=== PATIENT | female | born 1970 | race Hispanic/Latino ===

== ENCOUNTER 2017-05-24 12:03 | Emergency (ER) | payer MEDICAID ==
--- NOTE | 2017-05-24 12:18 | Emergency Department Report ---
Chief Complaint: Psych Stated Complaint: NONE COMPLIANT W/ MEDS/BIPOLAR/SCHIZOPHRENIC Time Seen by Provider: 05/24/17 12:15 - HPI History of Present Illness: PT sent for MHE - ROS Review of Systems: unable to obtain. pt talking to herself and clapping - Exam Vital Signs: Vital Signs 05/24/17 12:10 Temperature 98.6 F Pulse Rate 95 H Respiratory 16 Rate Blood Pressure 146/111 O2 Sat by Pulse 100 Oximetry Physical Exam: PT is alert pt will respond to questions and then she will talk to herself, talk to the wall and then yell MSE screening note: Focused history and physical exam performed. Due to findings the following was ordered: labs, mhe ED Disposition for MSE Condition: Stable
[2017-05-24 13:14] LABS: Basophils % (Auto) 0.9 % (0.0-1.8); Eosinophils % (Auto) 1.6 % (0.0-4.3); Hematocrit 40.2 % (30.3-42.9); Hemoglobin 13.4 gm/dl (10.1-14.3); Mean Corpuscular HGB Conc 33 % (30-34); Mean Corpuscular Hemoglobin 29 pg (28-32); Mean Corpuscular Volume 87 fl (79-97); Platelet Count 232 K/mm3 (140-440); Red Blood Count 4.64 M/mm3 (3.65-5.03); Red Cell Distribution Width 15.7 % (13.2-15.2); White Blood Count 4.4 K/mm3 (4.5-11.0)
[2017-05-24 13:34] LABS: Alanine Aminotransferase 10 units/L (7-56); Albumin 4.2 g/dL (3.9-5); Albumin/Globulin Ratio 1.1 %; Alkaline Phosphatase 54 units/L (35-129); Anion Gap 19 mmol/L; BUN/Creatinine Ratio 18.88; Blood Urea Nitrogen 17 mg/dL (7-17); Carbon Dioxide 23 mmol/L (22-30); Chloride 102.8 mmol/L (98-107); Glucose 85 mg/dL (65-100); Potassium 4.5 mmol/L (3.6-5.0); Sodium 140 mmol/L (137-145); Total Protein 8.2 g/dL (6.3-8.2)
--- NOTE | 2017-05-24 21:56 | Emergency Department Report ---
HPI - General Chief Complaint: Psych Time Seen by Provider: 05/24/17 12:15 - HPI HPI: Patient is from half-way came to the ED with the complaint of anger fits, nonviolent, history of bipolar without medications in the last few days. Patient denies any suicidal ideation, homicidal ideation. ED Past Medical Hx - Past Medical History Previous Medical History?: Yes Hx Psychiatric Treatment: Yes - Surgical History Past Surgical History?: No - Social History Smoking Status: Current Some Day Smoker Substance Use Type: None - Medications Home Medications: Home Medications Medication Instructions Recorded Confirmed Last Taken Type Quetiapine Fumarate [Seroquel] 100 mg PO BID #60 tablet 05/24/17 Unknown Rx ED Review of Systems ROS: Stated complaint: NONE COMPLIANT W/ MEDS/BIPOLAR/SCHIZOPHRENIC Other details as noted in HPI Comment: All other systems reviewed and negative Gastrointestinal: as per HPI Psychiatric: anxiety Physical Exam - Physical Exam Vital Signs: Vital Signs 05/24/17 05/24/17 05/24/17 12:10 14:37 19:59 Temperature 98.6 F 98.7 F Pulse Rate 95 H 72 Respiratory 16 18 18 Rate Blood Pressure 146/111 Blood Pressure 116/73 [Right] O2 Sat by Pulse 100 100 Oximetry 05/24/17 20:09 Temperature Pulse Rate Respiratory 18 Rate Blood Pressure Blood Pressure [Right] O2 Sat by Pulse 100 Oximetry Physical Exam: Gen. alert and oriented 3 in no distress Head atraumatic normocephalic Eyes PERR LA EOMI Chest regular rate and rhythm normal S1-S2 lungs clear bilaterally Abdomen soft nondistended Back no point tenderness paravertebral tenderness Neuro no focal deficit. Psych normal mood. ED Course Vital Signs 05/24/17 05/24/17 05/24/17 12:10 14:37 19:59 Temperature 98.6 F 98.7 F Pulse Rate 95 H 72 Respiratory 16 18 18 Rate Blood Pressure 146/111 Blood Pressure 116/73 [Right] O2 Sat by Pulse 100 100 Oximetry 05/24/17 20:09 Temperature Pulse Rate Respiratory 18 Rate Blood Pressure Blood Pressure [Right] O2 Sat by Pulse 100 Oximetry - Reevaluation(s) Reevaluation #1: 05/24/17 21:56 Patient was seen by [facility] for recommended discharge home. ED Medical Decision Making - Lab Data Result diagrams: 05/24/17 12:51 05/24/17 12:51 Critical care attestation.: If time is entered above; I have spent that time in minutes in the direct care of this critically ill patient, excluding procedure time. ED Disposition Clinical Impression: Bipolar 1 disorder Disposition: TO HOME OR SELFCARE Is pt being admited?: No Does the pt Need Aspirin: No Condition: Stable Prescriptions: Quetiapine Fumarate [Seroquel] 100 mg PO BID #60 tablet Referrals: PRIMARY CARE, [Primary Care Provider] - 3-5 Days
[2017-05-25 07:52] VITALS: BP 124/80
== END 2017-05-25 16:45 | disposition home or self-care (01) ==
LOC: EEVIPCON 12:03 → ED 12:03
DX: F31.9 Bipolar disorder, unspecified (principal); F17.200 Nicotine dependence, unspecified, uncomplicated
CPT/HCPCS: 36415; 80053; 84703; 85025; 99284; G0480; 80320

== ENCOUNTER 2020-01-09 15:13 | Emergency (ER) | payer MEDICAID | END 2020-01-09 18:28 | disposition left against medical advice (07) | LOC: ED 15:13 | DX: Z76.0 Encounter for issue of repeat prescription (principal) ==

== ENCOUNTER 2020-01-09 20:46 | Emergency (ER) | payer MEDICAID | END 2020-01-09 21:05 | disposition left against medical advice (07) | LOC: ED 20:46 | DX: F31.9 Bipolar disorder, unspecified (principal); F20.9 Schizophrenia, unspecified; Z53.21 Procedure and treatment not carried out due to patient leaving prior to being seen by health care provider ==

== ENCOUNTER 2020-02-11 20:25 | Emergency (ER) | payer MEDICAID ==
--- NOTE | 2020-02-11 20:37 | Emergency Department Report ---
<LAY SMYTH - Last Filed: 02/11/20 23:41> ED General Adult HPI - General Chief complaint: Psych Stated complaint: MH PUI?: No Time Seen by Provider: 02/11/20 20:35 Source: patient, police, RN notes reviewed, old records reviewed Mode of arrival: Stretcher Limitations: Other (Patient is disorganized) - History of Present Illness Initial comments: Patient is a 49-year-old female. She is known to myself previously. She has a history of psychiatric disease, and medication noncompliance She is brought to the hospital by local police department for psychiatric breakthrough. Apparently, the patient flushed her medications down the toilet. As per verbal report from the accompanying police district switchboard operator, the patient has been combative, violence, and threatened to assault the officer. The patient is disorganized, and cannot describe the qualitative nature of her symptoms. She does not describe exacerbating or relieving factors. She does not complain of any physical ailments at this time. History is limited as the patient is disorganized, and she is not accompanied by a friend, family for additional information or collateral information. -: unknown Consistency: other Improves with: other Worsens with: other Treatments Prior to Arrival: other - Related Data Home Medications Medication Instructions Recorded Confirmed Last Taken risperiDONE [RisperDAL] 1 mg PO BID 01/19/20 02/12/20 Unknown Previous Rx's Medication Instructions Recorded Last Taken Type Paliperidone Palmitate (Nf) 156 mg IM ONCE #1 syringe 02/16/20 Unknown Rx [Invega Sustenna (Nf)] Paliperidone Palmitate(Nf) [Invega 234 mg IM ONCE #1 ml 02/16/20 Unknown Rx Sustenna(Nf)] Allergies Allergy/AdvReac Type Severity Reaction Status Date / Time diphenhydramine HCl AdvReac Rash Verified 05/24/17 12:08 [From Benadryl] ED Review of Systems Comment: Unobtainable due to pts medical conditions ED Past Medical Hx - Past Medical History Hx Psychiatric Treatment: Yes (bipolar, schizo) Additional medical history: HIV - Social History Smoking Status: Current Every Day Smoker Substance Use Type: None - Medications Home Medications: Home Medications Medication Instructions Recorded Confirmed Last Taken Type risperiDONE [RisperDAL] 1 mg PO BID 01/19/20 02/12/20 Unknown History Paliperidone Palmitate (Nf) 156 mg IM ONCE #1 syringe 02/16/20 Unknown Rx [Invega Sustenna (Nf)] Paliperidone Palmitate(Nf) [Invega 234 mg IM ONCE #1 ml 02/16/20 Unknown Rx Sustenna(Nf)] ED Physical Exam - General Limitations: Other (The patient is actively psychotic and disorganized) General appearance: in no apparent distress - Head Head exam: Present: atraumatic, normocephalic - Eye Eye exam: Present: normal appearance - ENT ENT exam: Present: normal exam, mucous membranes moist, normal external ear exam - Neck Neck exam: Present: normal inspection, full ROM. Absent: tenderness, meningismus - Respiratory Respiratory exam: Present: normal lung sounds bilaterally. Absent: respiratory distress - Cardiovascular Cardiovascular Exam: Present: regular rate, normal rhythm, normal heart sounds. Absent: bradycardia, tachycardia, irregular rhythm, systolic murmur, diastolic murmur, rubs, gallop - GI/Abdominal GI/Abdominal exam: Present: soft. Absent: distended, tenderness, guarding, rebound, rigid, pulsatile mass - Extremities Exam Extremities exam: Present: normal inspection, full ROM, other (2+ pulses noted in the bilateral upper and lower extremities. There is no palpable cord. negative Homans sign. Muscular compartments are soft. The pelvis is stable.). Absent: pedal edema, calf tenderness - Back Exam Back exam: Present: normal inspection, full ROM. Absent: tenderness, CVA tenderness (R), CVA tenderness (L), paraspinal tenderness, vertebral tenderness - Neurological Exam Neurological exam: Present: altered, normal gait, other (Patient is awake. Speaking nonsensically. Walking with a steady gait.) - Psychiatric Psychiatric exam: Present: agitated, anxious - Skin Skin exam: Present: warm, dry, intact, normal color. Absent: rash ED Course - Reevaluation(s) Reevaluation #1: 02/11/20 21:09 Differential diagnosis, including but not limited to: Psychosis, disorganized behavior, medical clearance for psychiatric placement, pneumonia, viral syndrome, urinary tract infection Assessment and plan: 49-year-old female who is obviously psychotic, disorganized, cannot take care of herself, requires 1013 status, also found to have low-grade temperature. History is limited secondary to patient's psychosis. Place patient in isolation, obtain screening laboratory studies, urinalysis, x- ray of the chest, and reassess. Motor exam is nonfocal, there are no meningeal signs at this time. Reevaluation #2: 02/11/20 21:37 Patient continues to be agitated, belligerent, combative, we are not able to complete her medical work-up at this time, she will therefore be medicated with Geodon, she was already medicated with haloperidol and Ativan. Reevaluation #3: 02/11/20 23:39 Laboratory studies unremarkable, and not consistent with impending cytokine storm. X-ray of the chest negative for acute pathology. Additional history obtained from nursing staff, I am informed that the patient's initial temperature was taken after vigorous physical activity, as the patient was struggling, and may have artificially elevated her core temperature. I am familiar with this patient, and her history at this time is not consistent with coronavirus. The patient is medically suitable for psychiatric placement, consultation, evaluation at this time. There is no indication for emergent testing for coronavirus in the emergency room. 02/11/20 23:41 ED Medical Decision Making - Lab Data Result diagrams: 02/11/20 20:44 02/11/20 20:44 Vital Signs 02/11/20 20:39 Temperature 100.4 F H Pulse Rate 91 H Respiratory 20 Rate Blood Pressure 142/94 [Left] O2 Sat by Pulse 96 Oximetry Lab Results 02/11/20 Range/Units 20:44 WBC 6.8 (4.5-11.0) K/mm3 RBC 5.11 H (3.65-5.03) M/mm3 Hgb 14.3 (10.1-14.3) gm/dl Hct 42.3 (30.3-42.9) % MCV 83 (79-97) fl MCH 28 (28-32) pg MCHC 34 (30-34) % RDW 13.0 L (13.2-15.2) % Plt Count 209 (140-440) K/mm3 ED Disposition Clinical Impression: Disorganized behavior, Acute psychosis Is pt being admited?: No Does the pt Need Aspirin: No Condition: Good Instructions: Schizophrenia (ED), Suicide Prevention for Adults (ED) Prescriptions: Paliperidone Palmitate (Nf) [Invega Sustenna (Nf)] 156 mg IM ONCE #1 syringe Paliperidone Palmitate(Nf) [Invega Sustenna(Nf)] 234 mg IM ONCE #1 ml Referrals: PRIMARY CARE, [Primary Care Provider] - 3-5 Days <VAHID CASTRO - Last Filed: 02/17/20 13:12> ED Review of Systems ROS: Stated complaint: MH Other details as noted in HPI ED Course Vital Signs 02/11/20 02/11/20 02/12/20 20:39 22:10 07:35 Temperature 100.4 F H 97.6 F 96.8 F L Pulse Rate 91 H 82 68 Respiratory 18 20 18 Rate Blood Pressure 142/94 118/77 147/85 [Left] O2 Sat by Pulse 96 98 100 Oximetry 02/12/20 02/13/20 02/13/20 20:05 01:22 08:00 Temperature 98.8 F 98.0 F 98.5 F Pulse Rate 71 65 86 Respiratory 18 16 17 Rate Blood Pressure 118/71 136/70 114/82 [Left] O2 Sat by Pulse 100 99 100 Oximetry 02/13/20 02/13/20 02/14/20 14:09 19:50 01:00 Temperature 98.2 F 98.1 F 98.0 F Pulse Rate 111 H 82 80 Respiratory 17 18 20 Rate Blood Pressure 127/78 140/82 138/78 [Left] O2 Sat by Pulse 96 99 99 Oximetry 02/14/20 02/14/20 02/14/20 08:05 14:00 19:30 Temperature 98.1 F 98.2 F Pulse Rate 111 H 83 Respiratory 18 18 18 Rate Blood Pressure 109/79 118/76 [Left] O2 Sat by Pulse 95 99 Oximetry 02/14/20 02/15/20 02/15/20 20:10 02:12 09:28 Temperature 98.6 F 97.6 F 97.6 F Pulse Rate 78 72 95 H Respiratory 18 16 18 Rate Blood Pressure 130/89 118/53 119/77 [Left] O2 Sat by Pulse 100 100 99 Oximetry 02/15/20 02/15/20 02/15/20 15:28 20:11 23:05 Temperature 97.5 F L 98.2 F Pulse Rate 85 78 Respiratory 20 18 18 Rate Blood Pressure 122/72 120/75 [Left] O2 Sat by Pulse 100 99 Oximetry 02/16/20 02/16/20 02/16/20 01:58 08:44 20:00 Temperature 98.0 F 96.6 F L 98.3 F Pulse Rate 68 69 73 Respiratory 16 18 18 Rate Blood Pressure 126/76 122/68 119/71 [Left] O2 Sat by Pulse 99 100 100 Oximetry 02/17/20 02/17/20 02/17/20 01:30 09:02 10:30 Temperature 97.8 F 97.8 F Pulse Rate 88 84 Respiratory 18 18 18 Rate Blood Pressure 105/68 115/80 [Left] O2 Sat by Pulse 99 100 100 Oximetry ED Medical Decision Making - Lab Data Result diagrams: 02/11/20 20:44 02/11/20 20:44 - Medical Decision Making Patient is 49 years old female admitted to the ER for acute psychosis. Patient has been evaluated by our psychiatric team and advised patient can be discharged home. I personally examined Ms. Golden, patient is calm and cooperative. She denied any suicidal or homicidal ideation. Patient also denied any visual or auditory hallucination. Patient is medically and psychiatrically stable for discharge. Critical care attestation.: If time is entered above; I have spent that time in minutes in the direct care of this critically ill patient, excluding procedure time.
[2020-02-11] MEDS: LORazepam 2 MG/ML VIAL IM PRN (20:46)
[2020-02-11 20:55] LABS: Hematocrit 42.3 % (30.3-42.9); Hemoglobin 14.3 gm/dl (10.1-14.3); Mean Corpuscular HGB Conc 34 % (30-34); Mean Corpuscular Volume 83 fl (79-97); Platelet Count 209 K/mm3 (140-440); Red Blood Count 5.11 M/mm3 (3.65-5.03)
[2020-02-11] MEDS ORDERED: IBUPROFEN 400 MG TAB PO ONE (21:04)
[2020-02-11 21:11] LABS: INR 0.9 (0.87-1.13)
[2020-02-11] MEDS: HALOPERIDOL LACTATE 5 MG/1 ML INJ IM PRN (21:13)
[2020-02-11 21:19] LABS: Alanine Aminotransferase 20 units/L (7-56); Albumin 4.3 g/dL (3.9-5); BUN/Creatinine Ratio 17; Blood Urea Nitrogen 12 mg/dL (7-17); Calcium 10.1 mg/dL (8.4-10.2); Hemolysis Index 26
[2020-02-11] MEDS ORDERED: ZIPRASIDONE MESYLATE 20 MG VIAL IM ONE (21:36)
[2020-02-11] MEDS ORDERED: WATER FOR INJ Sterile (PF) 10 ML ONE (21:40)
[2020-02-11] MEDS: risperiDONE 1 MG TAB PO SCH (21:52)
[2020-02-11 21:54] LABS: C-Reactive Protein 0.1 mg/dL (0.00-1.30)
--- NOTE | 2020-02-11 23:32 | XRay Report ---
CHEST 1 VIEW 2214 INDICATION / CLINICAL INFORMATION: low grade fever. COMPARISON: None available. FINDINGS: SUPPORT DEVICES: None HEART / MEDIASTINUM: No significant abnormality. LUNGS / PLEURA: Poor degree of inspiration is seen. Mild bibasilar linear atelectatic changes are not ed. No definite acute infiltrates are seen. No pneumothorax. ADDITIONAL FINDINGS: No significant additional findings. IMPRESSION: Mild basilar atelectasis Signer Name: Glen Dietz MD Signed: 02/11/2020 11:27 PM Workstation Name: [id number]
[2020-02-11 23:38] LABS: Amphetamine Screen,Urine PRESUMPTIVE NEGATIVE; Benzodiazepines Screen,Urine PRESUMPTIVE NEGATIVE; Cannabinoid Screen,Urine PRESUMPTIVE NEGATIVE; Cocaine Screen,Urine PRESUMPTIVE NEGATIVE; Methadone Screen,Urine PRESUMPTIVE NEGATIVE; Opiate Screen,Urine PRESUMPTIVE NEGATIVE
[2020-02-11 23:46] LABS: Bacteria,Urine 1+ /HPF (Negative); Bilirubin,Urine NEG (Negative); Blood,Urine NEG (Negative); Color,Urine Straw (Yellow); Protein,Urine <15 mg/dL mg/dL (Negative); Urobilinogen,Urine < 2.0 mg/dL (<2.0)
[2020-02-12] MEDS: risperiDONE 1 MG TAB PO SCH ×2 (09:54→23:36)
[2020-02-12] MEDS: HALOPERIDOL LACTATE 5 MG/1 ML INJ IM PRN (11:37)
[2020-02-12] MEDS: LORazepam 2 MG/ML VIAL IM PRN (17:54)
[2020-02-13] MEDS: risperiDONE 1 MG TAB PO SCH ×3 (09:57→22:07)
--- NOTE | 2020-02-13 12:54 | Consultation ---
History of Present Illness - Reason for Consult Consult date: 02/13/20 Reason for consult: combative - History of Present Psychiatric Illness Syeda Golden is a 49y/o female patient who was was brought to the ER for combativeness and aggression toward others. During my interview with the patient she is standing at the door in her room. She is disorganized. She is a poor historian. She makes good eye contact. Her speech is garbled. She's very difficulty to follow. She says she's feeling "great." The patient starts out by telling me "there were three men in a room." She then states, "I don't know what happen. We were having fun." She then laughs out loud. She denies SI/HI. She also denies hallucinations of any kind, saying "I never have in my life." The patient denies any illicit drug use or alcohol use. When asking about her psychiatric history, she replied, "that's a good one." She also could not answer about any past medications, stating, "let me see." PAST PSYCHIATRIC HISTORY: The patient was unable to give information on past psych history PAST MEDICAL HISTORY: None reported Family History: None reported or documented SOCIAL HISTORY Living arrangement: Alone Marital status: Single Highest education level: "I don't know" Legal history: Did not answer REVIEW OF SYSTEMS Constitutional: Negative for weight loss ENT: Negative for stridor Respiratory: Negative for cough or hemoptysis All other systems reviewed and are negative MENTAL STATUS EXAMINATION General Appearance: Dressed appropriately Behavior: Cooperative. Good eye contact Mood: "Great" Affect: Congruent with stated mood Speech: Garbled, tangential, disorganized Thought Process: Goal oriented Thought Content: Suicidal Ideation: Denies Homicidal Ideation: Denies Hallucinations: Denies Delusions: None elicited Insight and Judgment: Poor Memory/Cognition: Poor Treatment plan Risperidone 2mg p BID Trazodone 50mg po qhs Melatonin 5mg po qhs prn insomnia Agree with prn Haldol and Lorazepam Sitter: Defer to primary Medical: Per primary Disposition: The patient meets the criteria for acute inpatient psychiatric treatment. She may transfer to an acute psych facility once medically clear. Will continue to follow the patient until she is transferred or improves enough for discharge. Please call with any questions or concerns. Thank you for this consult. Medications and Allergies Allergies Allergy/AdvReac Type Severity Reaction Status Date / Time diphenhydramine HCl AdvReac Rash Verified 05/24/17 12:08 [From [facility]] Home Medications Medication Instructions Recorded Confirmed Last Taken Type risperiDONE [RisperDAL] 1 mg PO BID 01/19/20 02/12/20 Unknown History Active Meds: Active Medications Haloperidol Lactate (Haldol) 5 mg IM Q6HR PRN PRN Reason: Agitation Last Admin: 02/12/20 11:37 Dose: 5 mg Documented by: Lorazepam (Ativan) 2 mg IM Q4HR PRN PRN Reason: Agitation Last Admin: 02/12/20 17:54 Dose: 2 mg Documented by: Risperidone (Risperdal) 1 mg PO BID ANNIE Last Admin: 02/13/20 09:57 Dose: 1 mg Documented by: Mental Status Exam - Vital signs Last Vital Signs Temp 98.5 F 02/13/20 08:00 Pulse 86 02/13/20 08:00 Resp 17 02/13/20 08:00 BP 114/82 02/13/20 08:00 Pulse Ox 100 02/13/20 08:00 Results Result Diagrams: 02/11/20 20:44 02/11/20 20:44 All other labs normal.
[2020-02-13] MEDS ORDERED: MELATONIN 5 MG TAB PO PRN (22:00)
[2020-02-13] MEDS: traZODone 50 MG TAB PO SCH (22:08)
[2020-02-14] MEDS: risperiDONE 1 MG TAB PO SCH ×2 (10:59→23:19)
--- NOTE | 2020-02-14 11:48 | Progress Note ---
Subjective - Reason for Consult Consult date: 02/14/20 Reason for consult: combative, threatening - Chief Complaint Chief complaint: Reviewed the patient's medical charts and discussed the patient's progress with the nursing staff. The nurse caring for the patient states that she becomes easily aggressive and is very disorganized. During my interview with the patient, she is lying in bed. Awake. Her speech is garbled. The patient is disorganized, and cannot explain why she's here or the nature of her problems. She is difficulty to follow. The patient states, "I have no idea why they brought me here." She says, "I feel okay" when asked. She denies SI/HI, and states, "no, I never was." She then starts babbling, and making sounds with her mouth, then replies, "I respect you." The patient then laughs out loud. When asking the patient about any hallucinations, she stated, "see, there was a lady there." REVIEW OF SYSTEMS Constitutional: Negative for weight loss ENT: Negative for stridor Respiratory: Negative for cough or hemoptysis All other systems reviewed and are negative MENTAL STATUS EXAMINATION General Appearance: Dressed appropriately Behavior: Cooperative. Good eye contact Mood: "fine" Affect: Congruent with stated mood Speech: Garbled, tangential, disorganized Thought Process: Goal oriented Thought Content: Suicidal Ideation: Denies Homicidal Ideation: Denies Hallucinations: Denies Delusions: None elicited Insight and Judgment: Poor Memory/Cognition: Poor Treatment plan Increase Risperidone 3mg p BID Start Cogentin 0.5mg po BID Sitter: Defer to primary Medical: Per primary Disposition: The patient meets the criteria for acute inpatient psychiatric treatment. She may transfer to an acute psych facility once medically clear. Will continue to follow the patient until she is transferred or improves enough for discharge. Please call with any questions or concerns. Thank you for this consult. Mental Status Exam - Vital signs Last Vital Signs Temp 98.1 F 02/14/20 08:05 Pulse 111 H 02/14/20 08:05 Resp 18 02/14/20 08:05 BP 109/79 02/14/20 08:05 Pulse Ox 95 02/14/20 08:05
[2020-02-14] MEDS: risperiDONE 3 MG TAB PO SCH (23:14)
[2020-02-14] MEDS: traZODone 50 MG TAB PO SCH (23:14)
[2020-02-14] MEDS: BENZTROPINE 0.5 MG TAB PO SCH (23:14)
--- NOTE | 2020-02-15 06:56 | Event Note ---
Date: 02/15/20 Vital signs are reviewed and appreciated, the patient is reevaluated by myself. The patient still remains medically suitable and appropriate for psychiatric placements, consultation and evaluation at this time. There is no immediate medical contraindication to psychiatric placement at this time. The patient will be best served at a psychiatric facility that can manage her acute decompensated psychosis. Vital Signs 02/11/20 02/11/20 02/12/20 20:39 22:10 07:35 Temperature 100.4 F H 97.6 F 96.8 F L Pulse Rate 91 H 82 68 Respiratory 18 20 18 Rate Blood Pressure 142/94 118/77 147/85 [Left] O2 Sat by Pulse 96 98 100 Oximetry 02/12/20 02/13/20 02/13/20 20:05 01:22 08:00 Temperature 98.8 F 98.0 F 98.5 F Pulse Rate 71 65 86 Respiratory 18 16 17 Rate Blood Pressure 118/71 136/70 114/82 [Left] O2 Sat by Pulse 100 99 100 Oximetry 02/13/20 02/13/20 02/14/20 14:09 19:50 01:00 Temperature 98.2 F 98.1 F 98.0 F Pulse Rate 111 H 82 80 Respiratory 17 18 20 Rate Blood Pressure 127/78 140/82 138/78 [Left] O2 Sat by Pulse 96 99 99 Oximetry 02/14/20 02/14/20 02/14/20 08:05 14:00 19:30 Temperature 98.1 F 98.2 F Pulse Rate 111 H 83 Respiratory 18 18 18 Rate Blood Pressure 109/79 118/76 [Left] O2 Sat by Pulse 95 99 Oximetry 02/14/20 02/15/20 20:10 02:12 Temperature 98.6 F 97.6 F Pulse Rate 78 72 Respiratory 18 16 Rate Blood Pressure 130/89 118/53 [Left] O2 Sat by Pulse 100 100 Oximetry
--- NOTE | 2020-02-15 11:48 | Progress Note ---
Subjective - Reason for Consult Consult date: 02/15/20 Reason for consult: Threatening, combative - Chief Complaint Chief complaint: Reviewed the patient's medical charts and discussed the patient's progress with the nursing staff. The nurse caring for the patient is improving, but says the patient is still very disorganized and gets lost in her conversations. The nurse states the patient responds better to the Haldol. The nurse states after the patient is given haldol she is a lot better. During my interview with the patient, she is walking around in her room. She is dressed appropriately. She makes good eye contact. Her speech is garbled and di sorganized. She's able to respond with minimum word answers, but is unable to communicate or explain what is going on with her in sentence form. The patient appears to get frustrated when she can't get her words out and starts making incomprehensible sounds. She says, "I'm great. I'm happy" when asked. When asked about the reason she was admitted, she says "there was Carlos and an [employer]." She continues to rant but she is incomprehensible. She then starts to make sounds when she couldn't get her words out. She says "no, I'm not" when asked about being suicidal. She denies hallucinations of any kind. REVIEW OF SYSTEMS Constitutional: Negative for weight loss ENT: Negative for stridor Respiratory: Negative for cough or hemoptysis All other systems reviewed and are negative MENTAL STATUS EXAMINATION General Appearance: Dressed appropriately Behavior: Cooperative. Good eye contact Mood: "I'm great. I'm happy." Affect: Congruent with stated mood Speech: Garbled, disorganized Thought Process: Disorganized Thought Content: Suicidal Ideation: Denies Homicidal Ideation: Denies Hallucinations: Denies Delusions: None elicited Insight and Judgment: Poor Memory/Cognition: Poor Treatment plan Discontinue Risperidone 3mg p BID Start Haldol 2mg po BID Sitter: Defer to primary Medical: Per primary Disposition: The patient meets the criteria for acute inpatient psychiatric treatment. She may transfer to an acute psych facility once medically clear. Will continue to follow the patient until she is transferred or improves enough for discharge. Please call with any questions or concerns. Thank you for this consult. Mental Status Exam - Vital signs Last Vital Signs Temp 97.6 F 02/15/20 09:28 Pulse 95 H 02/15/20 09:28 Resp 18 02/15/20 09:28 BP 119/77 02/15/20 09:28 Pulse Ox 99 02/15/20 09:28
[2020-02-15] MEDS: BENZTROPINE 0.5 MG TAB PO SCH ×2 (12:00→21:51)
[2020-02-15] MEDS: risperiDONE 1 MG TAB PO SCH (12:00)
[2020-02-15] MEDS ORDERED: risperiDONE 1 MG TAB ONE (14:07)
[2020-02-15] MEDS: risperiDONE 3 MG TAB PO SCH (14:12)
[2020-02-15] MEDS: HALOPERIDOL 2 MG TAB PO SCH (21:51)
[2020-02-15] MEDS: traZODone 50 MG TAB PO SCH (21:51)
[2020-02-16] MEDS: BENZTROPINE 0.5 MG TAB PO SCH ×2 (10:54→21:55)
[2020-02-16] MEDS: HALOPERIDOL 2 MG TAB PO SCH (10:54)
--- NOTE | 2020-02-16 11:10 | Progress Note ---
Subjective - Reason for Consult Consult date: 02/16/20 Reason for consult: comabitive, threatnening - Chief Complaint Chief complaint: Reviewed the patient's medical charts and discussed the patient's progress with the nursing staff. During my interview with the patient, she is walking around in her room. She is dressed appropriately. She makes good eye contact. Her speech is garbled and disorganized. She is incomprehensible when trying to explain herself. She describes feeling "great. I'm happy." She denies SI/HI or hallucinations of any kind, stating, "no, I never was." I spoke with the patient's case manage, Torsten Baptiste. She states the patient does stutter but is never disorganzied. Mrs. Baptiste says the patient is noncomplaint with her medications and becomes like this when she is off her medication. REVIEW OF SYSTEMS Constitutional: Negative for weight loss ENT: Negative for stridor Respiratory: Negative for cough or hemoptysis All other systems reviewed and are negative MENTAL STATUS EXAMINATION General Appearance: Dressed appropriately Behavior: Cooperative. Good eye contact Mood: "I'm great. I'm happy." Affect: Congruent with stated mood Speech: Garbled, disorganized Thought Process: Disorganized Thought Content: Suicidal Ideation: Denies Homicidal Ideation: Denies Hallucinations: Denies Delusions: None elicited Insight and Judgment: Poor Memory/Cognition: Poor Assessment: Schizoaffective Disorder Treatment plan Scripts sent electronically to [facility] ([address] [place] [address] Rd - [phone]) Mrs. Sarmiento to sisal picker.. Invega Sustenna 234mg IM Invega Sustenna 156mg IM oliva day 8 Haldol Decanate 50mg IM x once Sitter: Defer to primary Medical: Per primary Disposition: Monitor overnight after given Haldol Decanate. Will d/c tomorrow if the patient is stable and her night is uneventful. Please call with any questions or concerns. Thank you for this consult. Mental Status Exam - Vital signs Last Vital Signs Temp 96.6 F L 02/16/20 08:44 Pulse 69 02/16/20 08:44 Resp 18 02/16/20 08:44 BP 122/68 02/16/20 08:44 Pulse Ox 100 02/16/20 08:44
[2020-02-16] MEDS ORDERED: HALOPERIDOL 5 MG TAB PO SCH (12:00)
[2020-02-16] MEDS ORDERED: HALOPERIDOL DECANOATE 100 MG/1 ML INJ IM ONE (13:30)
[2020-02-16] MEDS: traZODone 50 MG TAB PO SCH (21:55)
[2020-02-17] MEDS: BENZTROPINE 0.5 MG TAB PO SCH (10:07)
--- NOTE | 2020-02-17 12:21 | Progress Note ---
Subjective - Reason for Consult Consult date: 02/17/20 Reason for consult: MHE Requesting physician: LAY SMYTH - Chief Complaint Chief complaint: Reviewed the patient's medical charts Per Nurse note, No complaints during HS medications. No distress noted. Calm and cooperative. Provider HPI: Patient up and awake in room, makes good eye contact, reports feeling better today, has been medication complaint. Denies state of anger or aggression. Reports liking her roommates and wishes to not get in fight neither does she want to fight them. No SI or HI reported MENTAL STATUS EXAMINATION General Appearance: Dressed appropriately Behavior: Cooperative. Good eye contact Mood: Happy and good Affect: Congruent with stated mood Speech: Stammering but audible Thought Process: Disorganized Thought Content: Suicidal Ideation: Denies Homicidal Ideation: Denies Hallucinations: Denies Delusions: None elicited Insight and Judgment: Fair Memory/Cognition: Poor Assessment: Schizoaffective Disorder Treatment plan Discharge today Scripts sent electronically to [facility] ([address] [place] [address] Rd - [phone]) Mrs. Sarmiento to solution make up operator.. Invega Sustenna 234mg IM Invega Sustenna 156mg IM oliva day 8 Haldol Decanate 50mg IM x once Sitter: Defer to primary Medical: Per primary Disposition: Outpatient Please call with any questions or concerns. Thank you for this consult. Mental Status Exam - Vital signs Last Vital Signs Temp 97.8 F 02/17/20 09:02 Pulse 84 02/17/20 09:02 Resp 18 02/17/20 10:30 BP 115/80 02/17/20 09:02 Pulse Ox 100 02/17/20 10:30
[2020-02-17 14:59] VITALS: BP 119/76
== END 2020-02-17 13:52 | disposition home or self-care (01) ==
LOC: EEVIPCON 20:25 → ED 20:25
DX: R46.89 Other symptoms and signs involving appearance and behavior (principal); F31.9 Bipolar disorder, unspecified; F20.9 Schizophrenia, unspecified; F17.200 Nicotine dependence, unspecified, uncomplicated
CPT/HCPCS: 36415; 71045; 80053; 80307; 81001; 82550; 82728; 83615; 83735; 85027; 85379; 85610; 86140; 96372; 99285; J1630; J1631; J2060; J3486; 80320; G0480

== ENCOUNTER 2020-02-25 17:59 | Emergency (ER) | payer MEDICAID ==
[2020-02-25] MEDS ORDERED: DEXTROSE 50% IN WATER (25GM) 50 ML SYRINGE IV PRN (18:13)
--- NOTE | 2020-02-25 18:16 | Event Note ---
Date: 02/25/20 Medical screening note: 49-year-old female, well-known to myself, brought to the hospital by emergency medical services after she was found down on the street, for uncertain duration of time, and uncertain mechanism, it appears that michael contacted emergency medical services. The patient is speaking with her typical disorganized speech, however, she is not homicidal or suicidal at this time. EMS verbally states the patient was hypoglycemic. They report that they gave her dextrose. Check screening laboratory studies, urinalysis, x-ray of the chest, rectal temperature, EKG, every 1 hour Accu-Cheks, CT scan brain and cervical spine.
--- NOTE | 2020-02-25 19:36 | XRay Report ---
AP PELVIS INDICATION / CLINICAL INFORMATION: MAIN: found down; EMS reports pt was found lying on the side of the road. BG 49, administered D10, BG 257 per EMS. COMPARISON: None available. FINDINGS: No fracture or dislocation is seen within the pelvis or either hip. Signer Name: Reilly Lucas MD Signed: 02/25/2020 7:32 PM Workstation Name: [id number]
--- NOTE | 2020-02-25 19:37 | XRay Report ---
CHEST 1 VIEW 02/25/2020 6:27 PM INDICATION / CLINICAL INFORMATION: MAIN: hypoglycemia found on road ams; EMS reports pt was found lying on the side of the road. BG 49, administered D10, BG 257 per EMS. COMPARISON: Chest x-ray 02/11/2020 FINDINGS: SUPPORT DEVICES: None. HEART / MEDIASTINUM: No significant abnormality. LUNGS / PLEURA: No significant pulmonary or pleural abnormality. No pneumothorax. ADDITIONAL FINDINGS: No significant additional findings. IMPRESSION: 1. No acute findings. Signer Name: Reilly Lucas MD Signed: 02/25/2020 7:33 PM Workstation Name: [id number]
[2020-02-25 19:43] LABS: INR 1.04 (0.87-1.13)
[2020-02-25 19:45] LABS: Alanine Aminotransferase 13 units/L (7-56); Albumin 3.8 g/dL (3.9-5); BUN/Creatinine Ratio 15; Blood Urea Nitrogen 12 mg/dL (7-17); Calcium 9.3 mg/dL (8.4-10.2); Hemolysis Index 11
[2020-02-25] MEDS ORDERED: POTASSIUM CHLORIDE ER 20 MEQ TAB PO ONE (19:59)
--- NOTE | 2020-02-25 20:00 | Cat Scan Report ---
CT head/brain wo con INDICATION / CLINICAL INFORMATION: 49 years Female; ams found on road. TECHNIQUE: Routine CT head without contrast. All CT scans at this location are performed using CT dos e reduction for ALARA by means of automated exposure control. COMPARISON: None. FINDINGS: BRAIN / INTRACRANIAL CONTENTS: No acute hemorrhage, mass effect, midline shift, hydrocephalus, or acu te, large territorial infarct. No chronic infarct or atrophy appreciated. No significant white matter abnormality. CRANIOCERVICAL JUNCTION: No significant abnormality. ORBITS: No significant abnormality of visualized orbits. SINUSES / MASTOIDS: No significant abnormality the visualized paranasal sinuses or mastoid air cells. ADDITIONAL FINDINGS: None. IMPRESSION: 1. No focal mass, hemorrhage, hydrocephalus, or acute, large territorial infarct. Signer Name: Max Wahl MD, III Signed: 02/25/2020 7:56 PM Workstation Name: [id number]
[2020-02-25 20:07] LABS: Hematocrit 34.8 % (30.3-42.9); Hemoglobin 11.8 gm/dl (10.1-14.3)
[2020-02-25 20:13] LABS: Bilirubin,Urine NEG (Negative); Blood,Urine NEG (Negative); Color,Urine Straw (Yellow); Protein,Urine <15 mg/dL mg/dL (Negative); Urobilinogen,Urine < 2.0 mg/dL (<2.0); WBC,Urine < 1.0 /HPF (0.0-6.0)
--- NOTE | 2020-02-25 20:16 | Emergency Department Report ---
ED General Adult HPI - General Chief complaint: Hyperglycemia Stated complaint: HYPOGLYCEMIA PUI?: No Time Seen by Provider: 02/25/20 19:10 Source: patient, EMS ( EMS documentation not available at time of chart dictation . Verbal report received from emergency medical services.), RN notes reviewed, old records reviewed Mode of arrival: Stretcher Limitations: Other (Patient is chronically disorganized) - History of Present Illness Initial comments: The patient is a 49-year-old female whom I have evaluated multiple times in the past. She is brought to the hospital by emergency medical services. Apparently, she was found sitting or laying on the road, and a good [employer] called emergency medical services. The patient was found to be mildly hypoglycemic. She was given dextrose and fed, and this corrected her hypogly cemia. She is not homicidal or suicidal at this time. She indicates that she is not having physical pain. The patient is somewhat of a poor historian, but at this point in time, she appears improved compared to my prior evaluation today, and from previous evaluations. She does not describe the qualitative nature of her symptoms, exacerbating or relieving factors. -: This afternoon Severity scale (0 -10): 3 - Related Data Home Medications Medication Instructions Recorded Confirmed Last Taken risperiDONE [RisperDAL] 1 mg PO BID 01/19/20 02/12/20 Unknown Previous Rx's Medication Instructions Recorded Last Taken Type Paliperidone Palmitate (Nf) 156 mg IM ONCE #1 syringe 02/16/20 Unknown Rx [Invega Sustenna (Nf)] Paliperidone Palmitate(Nf) [Invega 234 mg IM ONCE #1 ml 02/16/20 Unknown Rx Sustenna(Nf)] Allergies Allergy/AdvReac Type Severity Reaction Status Date / Time diphenhydramine HCl AdvReac Rash Verified 05/24/17 12:08 [From Benadryl] ED Review of Systems ROS: Stated complaint: HYPOGLYCEMIA Other details as noted in HPI Constitutional: see HPI Eyes: as per HPI ENT: as per HPI Respiratory: see HPI Cardiovascular: as per HPI Endocrine: see HPI Gastrointestinal: as per HPI Genitourinary: as per HPI Musculoskeletal: as per HPI Skin: as per HPI Neurological: as per HPI Psychiatric: as per HPI Hematological/Lymphatic: as per HPI ED Past Medical Hx - Past Medical History Previous Medical History?: Yes Hx Psychiatric Treatment: Yes (bipolar, schizo) Additional medical history: HIV - Social History Smoking Status: Unknown if ever smoked - Medications Home Medications: Home Medications Medication Instructions Recorded Confirmed Last Taken Type risperiDONE [RisperDAL] 1 mg PO BID 01/19/20 02/12/20 Unknown History Paliperidone Palmitate (Nf) 156 mg IM ONCE #1 syringe 02/16/20 Unknown Rx [Invega Sustenna (Nf)] Paliperidone Palmitate(Nf) [Invega 234 mg IM ONCE #1 ml 02/16/20 Unknown Rx Sustenna(Nf)] ED Physical Exam - General Limitations: Other (The patient is a poor historian) General appearance: alert, anxious - Head Head exam: Present: atraumatic, normocephalic - Eye Eye exam: Present: normal appearance, EOMI. Absent: nystagmus - ENT ENT exam: Present: mucous membranes dry, normal external ear exam - Neck Neck exam: Present: normal inspection, full ROM. Absent: tenderness, meningismus - Respiratory Respiratory exam: Present: normal lung sounds bilaterally. Absent: respiratory distress - Cardiovascular Cardiovascular Exam: Present: regular rate, normal rhythm, normal heart sounds. Absent: bradycardia, tachycardia, irregular rhythm, systolic murmur, diastolic murmur, rubs, gallop - GI/Abdominal GI/Abdominal exam: Present: soft, normal bowel sounds. Absent: distended, tenderness, guarding, rebound, rigid, pulsatile mass - Extremities Exam Extremities exam: Present: normal inspection, full ROM, other (2+ pulses noted in the bilateral upper and lower extremities. There is no palpable cord. negative Homans sign. Muscular compartments are soft. The pelvis is stable.). Absent: pedal edema, calf tenderness - Back Exam Back exam: Present: normal inspection, full ROM. Absent: tenderness, CVA tenderness (R), CVA tenderness (L), paraspinal tenderness, vertebral tenderness - Neurological Exam Neurological exam: Present: alert, oriented X3, normal gait, other (No facial droop. Tongue midline. Extraocular movements intact bilaterally. Facial sensation intact to light touch in V1, V2, V3 distribution bilaterally. 5 and a 5 strength in 4 extremities. Sensation intact to light touch in 4 e xtremities.). Absent: motor sensory deficit - Psychiatric Psychiatric exam: Present: anxious - Skin Skin exam: Present: warm, dry, intact, normal color. Absent: rash ED Course Vital Signs 02/25/20 19:15 Temperature 98.2 F Pulse Rate 96 H Respiratory 18 Rate Blood Pressure 99/59 Blood Pressure 99/59 [Left] O2 Sat by Pulse 95 Oximetry - Reevaluation(s) Reevaluation #1: 02/25/20 21:57 There is no midline cervical spine tenderness or step-offs. The patient is walking with a steady gait at this time. She has a GCS of 15. She has no weakness or numbness. At this point time, rectal temperature not indicated, and she does not require C-spine imaging at this time ED Medical Decision Making - Lab Data Result diagrams: 02/25/20 20:01 02/25/20 19:17 Vital Signs 02/25/20 19:15 Temperature 98.2 F Pulse Rate 96 H Respiratory 18 Rate Blood Pressure 99/59 Blood Pressure 99/59 [Left] O2 Sat by Pulse 95 Oximetry Lab Results 02/25/20 02/25/20 02/25/20 Range/Units 19:15 19:17 19:17 Hgb (10.1-14.3) gm/dl Hct (30.3-42.9) % Plt Count (140-440) K/mm3 PT 13.4 (12.2-14.9) Sec. INR 1.04 (0.87-1.13) Sodium 139 (137-145) mmol/L Potassium 3.1 L (3.6-5.0) mmol/L Chloride 102.4 (98-107) mmol/L Carbon Dioxide 25 (22-30) mmol/L Anion Gap 15 mmol/L BUN 12 (7-17) mg/dL Creatinine 0.8 (0.7-1.2) mg/dL Estimated GFR > 60 ml/min BUN/Creatinine Ratio 15 % Glucose 103 H (65-100) mg/dL POC Glucose 95 (70-105) Calcium 9.3 (8.4-10.2) mg/dL Magnesium 2.30 (1.7-2.3) mg/dL Total Bilirubin 0.70 (0.1-1.2) mg/dL AST 23 (5-40) units/L ALT 13 (7-56) units/L Alkaline Phosphatase 51 (35-129) units/L Total Creatine Kinase 453 H (30-135) units/L Total Protein 6.9 (6.3-8.2) g/dL Albumin 3.8 L (3.9-5) g/dL Albumin/Globulin Ratio 1.2 % Urine Color (Yellow) Urine Turbidity (Clear) Urine pH (5.0-7.0) Ur Specific [place] (1.003-1.030) Urine Protein (Negative) mg/dL Urine Glucose (UA) (Negative) mg/dL Urine Ketones (Negative) mg/dL Urine Blood (Negative) Urine Nitrite (Negative) Urine Bilirubin (Negative) Urine Urobilinogen (<2.0) mg/dL Ur Leukocyte Esterase (Negative) Urine WBC (Auto) (0.0-6.0) /HPF Urine RBC (Auto) (0.0-6.0) /HPF U Epithel Cells (Auto) (0-13.0) /HPF Salicylates (2.8-20.0) mg/dL Acetaminophen (10.0-30.0) ug/mL Plasma/Serum Alcohol (0-0.07) % 02/25/20 02/25/20 02/25/20 Range/Units 19:17 19:17 19:17 Hgb (10.1-14.3) gm/dl Hct (30.3-42.9) % Plt Count (140-440) K/mm3 PT (12.2-14.9) Sec. INR (0.87-1.13) Sodium (137-145) mmol/L Potassium (3.6-5.0) mmol/L Chloride (98-107) mmol/L Carbon Dioxide (22-30) mmol/L Anion Gap mmol/L BUN (7-17) mg/dL Creatinine (0.7-1.2) mg/dL Estimated GFR ml/min BUN/Creatinine Ratio % Glucose (65-100) mg/dL POC Glucose (70-105) Calcium (8.4-10.2) mg/dL Magnesium (1.7-2.3) mg/dL Total Bilirubin (0.1-1.2) mg/dL AST (5-40) units/L ALT (7-56) units/L Alkaline Phosphatase (35-129) units/L Total Creatine Kinase (30-135) units/L Total Protein (6.3-8.2) g/dL Albumin (3.9-5) g/dL Albumin/Globulin Ratio % Urine Color (Yellow) Urine Turbidity (Clear) Urine pH (5.0-7.0) Ur Specific [place] (1.003-1.030) Urine Protein (Negative) mg/dL Urine Glucose (UA) (Negative) mg/dL Urine Ketones (Negative) mg/dL Urine Blood (Negative) Urine Nitrite (Negative) Urine Bilirubin (Negative) Urine Urobilinogen (<2.0) mg/dL Ur Leukocyte Esterase (Negative) Urine WBC (Auto) (0.0-6.0) /HPF Urine RBC (Auto) (0.0-6.0) /HPF U Epithel Cells (Auto) (0-13.0) /HPF Salicylates < 0.3 L (2.8-20.0) mg/dL Acetaminophen < 5.0 L (10.0-30.0) ug/mL Plasma/Serum Alcohol < 0.01 (0-0.07) % 02/25/20 02/25/20 02/25/20 Range/Units 20:01 20:05 21:29 Hgb 11.8 (10.1-14.3) gm/dl Hct 34.8 (30.3-42.9) % Plt Count 199 (140-440) K/mm3 PT (12.2-14.9) Sec. INR (0.87-1.13) Sodium (137-145) mmol/L Potassium (3.6-5.0) mmol/L Chloride (98-107) mmol/L Carbon Dioxide (22-30) mmol/L Anion Gap mmol/L BUN (7-17) mg/dL Creatinine (0.7-1.2) mg/dL Estimated GFR ml/min BUN/Creatinine Ratio % Glucose (65-100) mg/dL POC Glucose 80 (70-105) Calcium (8.4-10.2) mg/dL Magnesium (1.7-2.3) mg/dL Total Bilirubin (0.1-1.2) mg/dL AST (5-40) units/L ALT (7-56) units/L Alkaline Phosphatase (35-129) units/L Total Creatine Kinase (30-135) units/L Total Protein (6.3-8.2) g/dL Albumin (3.9-5) g/dL Albumin/Globulin Ratio % Urine Color Straw (Yellow) Urine Turbidity Clear (Clear) Urine pH 6.0 (5.0-7.0) Ur Specific [place] 1.003 (1.003-1.030) Urine Protein <15 mg/dl (Negative) mg/dL Urine Glucose (UA) Neg (Negative) mg/dL Urine Ketones Tr (Negative) mg/dL Urine Blood Neg (Negative) Urine Nitrite Neg (Negative) Urine Bilirubin Neg (Negative) Urine Urobilinogen < 2.0 (<2.0) mg/dL Ur Leukocyte Esterase Neg (Negative) Urine WBC (Auto) < 1.0 (0.0-6.0) /HPF Urine RBC (Auto) 1.0 (0.0-6.0) /HPF U Epithel Cells (Auto) < 1.0 (0-13.0) /HPF Salicylates (2.8-20.0) mg/dL Acetaminophen (10.0-30.0) ug/mL Plasma/Serum Alcohol (0-0.07) % - EKG Data 02/25/20 21:55 Sinus rhythm, 85 bpm, normal axis, QTC 447 ms, high left ventricular voltage, there is no endorsement of chest pain, the EKG is not a STEMI - Radiology Data Radiology results: report reviewed, image reviewed Noncontrast CT scan of the brain negative for acute disease. X-ray of the chest negative for acute disease. X-ray of the pelvis is negative for acute disease. - Medical Decision Making Differential diagnosis, including but not limited to: Malnutrition, poor oral intake, resolved hypoglycemia, intracranial injury, pneumonia, urinary tract infection Assessment and plan: 49-year-old female with chronic psychiatric patient, with resolved hypoglycemia, walking with a steady gait, tolerating oral feeds, fed multiple times in the emergency room, who has improved functional status at this time, not endorsing homicidality or suicidality, somewhat verbally aggressive with staff, although she is able to be calmed down to verbal techniques. At this moment, does not meet criteria for 1013 hold or involuntary hold. She is tolerating oral feeds. Her glucose has been acceptable on multiple re- evaluations. The patient is suitable for trial of outpatient management at this time. Critical care attestation.: If time is entered above; I have spent that time in minutes in the direct care of this critically ill patient, excluding procedure time. ED Disposition Clinical Impression: History of hypoglycemia Disposition: DC- TO HOME OR SELFCARE Is pt being admited?: No Does the pt Need Aspirin: No Condition: Stable Additional Instructions: Please continue current outpatient medications. Please make certain to eat at least 4-6 times per day. Please follow-up with your outpatient primary care doctor or psychiatrist within the next week. Please return to the emergency room right away with new pain, worsening pain, migration of pain, rectal vomiting, change in mental status, confusion, inability to tolerate liquid feeds, or symptoms not present on the initial ER evaluation. Have a primary care doctor contact the medical records department to obtain culture results, which were sent earlier on today, and cultures should be back within the next week. Referrals: [facility] [Provider Group] - 3-5 Days [facility] [Outside] - 3-5 Days
[2020-02-26 13:37] VITALS: BP 99/59
== END 2020-02-25 22:00 | disposition home or self-care (01) ==
LOC: ED 17:59
DX: F25.0 Schizoaffective disorder, bipolar type (principal); Z21 Asymptomatic human immunodeficiency virus [HIV] infection status; Z88.8 Allergy status to other drugs, medicaments and biological substances; Z86.39 Personal history of other endocrine, nutritional and metabolic disease; Z79.899 Other long term (current) drug therapy
CPT/HCPCS: 36415; 70450; 71045; 72170; 80053; 80320; 81001; 82550; 82962; 83735; 85014; 85018; 85049; 85610; 87086; 93005; G0480

== ENCOUNTER 2021-12-26 19:31 | Emergency (ER) | payer MEDICAID ==
--- NOTE | 2021-12-26 22:15 | Emergency Department Report ---
HPI - General Chief Complaint: Psych Time Seen by Provider: 12/26/21 21:57 - HPI HPI: Room 15 The patient is a 51-year-old female present with a chief complaint of psychosis. The patient states she stays in a intermediate and the psychiatric rn "made" her come to the emergency department. When asked why the patient states she does not know. Patient admitted in triage that she feels psychotic and is hearing voices however the patient denies auditory or visual hallucinations to me. Patient denies suicidal or homicidal ideation. The patient exhibits rambling speech ED Past Medical Hx - Past Medical History Previous Medical History?: Yes Hx Psychiatric Treatment: Yes (bipolar, schizophrenia) Hx HIV: Yes Additional medical history: HIV - Surgical History Past Surgical History?: No Additional Surgical History: unknown - Family History Family history: no significant - Social History Smoking Status: Never Smoker (Patient dips tobacco) Substance Use Type: None (Denies illicit drug use) - Medications Home Medications: Home Medications Medication Instructions Recorded Confirmed Last Taken Type Nitrofurantoin Darke/M-Cryst 100 mg PO Q12H #14 capsule 01/14/20 Unknown Rx [Macrobid CAP] risperiDONE [RisperDAL] 1 mg PO BID #60 tablet 01/14/20 Unknown Rx risperiDONE [RisperDAL] 1 mg PO BID 01/19/20 02/12/20 Unknown History Paliperidone Palmitate [Invega 156 mg IM ONCE #1 syringe 02/16/20 Unknown Rx Sustenna (Nf)] Paliperidone Palmitate [Invega 234 mg IM ONCE #1 ml 02/16/20 Unknown Rx Sustenna(Nf)] ED Review of Systems ROS: Stated complaint: MED REFILL Other details as noted in HPI Constitutional: no symptoms reported Eyes: denies: eye pain ENT: denies: throat pain Respiratory: no symptoms reported Cardiovascular: denies: chest pain Endocrine: no symptoms reported Gastrointestinal: denies: abdominal pain Genitourinary: denies: dysuria Musculoskeletal: denies: back pain Neurological: denies: headache Psychiatric: denies: auditory hallucinations, visual hallucinations, homicidal thoughts, suicidal thoughts Physical Exam - Physical Exam Vital Signs: Vital Signs 12/26/21 12/26/21 19:53 20:36 Temperature 98 F 97.8 F Pulse Rate 78 101 H Respiratory 18 18 Rate Blood Pressure 130/76 Blood Pressure 137/113 [Right] O2 Sat by Pulse 100 99 Oximetry Physical Exam: GENERAL: The patient is well-developed well-nourished female lying on chair not appearing to be in acute distress. [] HEENT: Normocephalic. Atraumatic. Extraocular motions are intact. Patient has moist mucous membranes. NECK: Supple. Trachea midline CHEST/LUNGS: Clear to auscultation. There is no respiratory distress noted. HEART/CARDIOVASCULAR: Regular. There is no tachycardia. There is no gallop rub or murmur. ABDOMEN: Abdomen is soft, nontender. Patient has normal bowel sounds. There is no abdominal distention. SKIN: There is no rash. There is no edema. There is no diaphoresis. NEURO: The patient is awake and alert. The patient is cooperative. The patient has no focal neurologic deficits. The patient has normal speech. GCS 15 MUSCULOSKELETAL: There is no evidence of acute injury. ED Course Vital Signs 12/26/21 12/26/21 19:53 20:36 Temperature 98 F 97.8 F Pulse Rate 78 101 H Respiratory 18 18 Rate Blood Pressure 130/76 Blood Pressure 137/113 [Right] O2 Sat by Pulse 100 99 Oximetry ED Medical Decision Making - Lab Data Result diagrams: 12/26/21 22:32 12/26/21 22:32 - Differential Diagnosis Schizophrenia Critical care attestation.: If time is entered above; I have spent that time in minutes in the direct care of this critically ill patient, excluding procedure time. ED Disposition Clinical Impression: Agitation Disposition: 01 HOME / SELF CARE / HOMELESS Is pt being admited?: No Does the pt Need Aspirin: No Condition: Stable Instructions: Suicidal Feelings: How to Help Yourself Additional Instructions: Drink fluids. Return for problems. Follow-up as directed by psychiatric services. Referrals: BRIAN LABOY MD [Staff Physician] - 3-5 Days PRIMARY CAREMD [Primary Care Provider] - 3-5 Days
[2021-12-26 23:27] LABS: Basophils % (Auto) 0.4 % (0.0-1.8); Eosinophils # (Auto) 0.1 K/mm3 (0.0-0.4); Eosinophils % (Auto) 1.4 % (0.0-4.3); Hematocrit 41.1 % (30.3-42.9); Hemoglobin 13.8 gm/dl (10.1-14.3); Lymphocytes # (Auto) 2.4 K/mm3 (1.2-5.4); Lymphocytes % (Auto) 30.7 % (13.4-35.0); Mean Corpuscular HGB Conc 34 % (30-34); Mean Corpuscular Volume 84 fl (79-97); Monocytes # (Auto) 0.5 K/mm3 (0.0-0.8); Monocytes % (Auto) 6.9 % (0.0-7.3); Platelet Count 253 K/mm3 (140-440); Red Blood Count 4.87 M/mm3 (3.65-5.03); Red Cell Distribution Width 13.8 % (13.2-15.2)
[2021-12-26 23:37] LABS: BUN/Creatinine Ratio 22; Blood Urea Nitrogen 20 mg/dL (7-17); Calcium 9.9 mg/dL (8.4-10.2); Hemolysis Index 124
[2021-12-27 00:24] LABS: Bacteria,Urine 1+ /HPF (Negative); Bilirubin,Urine NEG (Negative); Blood,Urine SM (Negative); Color,Urine Straw (Yellow); Mucus,Urine FEW /HPF; Protein,Urine <15 mg/dL mg/dL (Negative); Urobilinogen,Urine < 2.0 mg/dL (<2.0)
[2021-12-27 00:30] LABS: Amphetamine Screen,Urine PRESUMPTIVE NEGATIVE; Benzodiazepines Screen,Urine PRESUMPTIVE NEGATIVE; Cannabinoid Screen,Urine PRESUMPTIVE NEGATIVE; Cocaine Screen,Urine PRESUMPTIVE NEGATIVE; Methadone Screen,Urine PRESUMPTIVE NEGATIVE; Opiate Screen,Urine PRESUMPTIVE NEGATIVE
[2021-12-27 04:10] VITALS: BP 139/84
--- NOTE | 2021-12-27 09:05 | Emergency Department Report ---
Blank Doc - Documentation Documentation: There were no events throughout the course of the night. Psychiatric disposit ion is pending. Labs have been reviewed.
--- NOTE | 2021-12-27 10:45 | Consultation ---
History of Present Illness - Reason for Consult Consult date: 12/27/21 Reason for consult: agitation - History of Present Psychiatric Illness HPI: The patient is a 51-year-old female present with a chief complaint of psychosis. The patient states she stays in a prison and the midwife and birth center owner "made" her come to the emergency department. When asked why the patient states she does not know. Patient admitted in triage that she feels psychotic and is hearing voices however the patient denies auditory or visual hallucinations to me. Patient denies suicidal or homicidal ideation. The patient exhibits rambling speech. The patient was seen today. She states she came from [facility] because the general warehouse associate triggered her. She says "I became agitated." The patient says she's "feeling much better. I just got triggered by him." She denies SI/HI or hallucinations of any kind. The patient says she has a history of Bipolar Disorder. She says she's been compliant with her meds. She could not recall what they are. She denies any drug use or alcohol or nicotine. PAST PSYCHIATRIC HISTORY Diagnoses: Bipolar Suicide attempts or Self-harm behavior: Denies Prior psychiatric hospitalizations: Yes Substance Abuse history: Denies Previous psychiatric medications tried: could not recall Outpatient treatment: Yes PAST MEDICAL HISTORY: None reported Family Psychiatric History: None reported or documented SOCIAL HISTORY Living arrangement: [facility] Marital status: Single Employment status: Unemployed REVIEW OF SYSTEMS Constitutional: Negative for weight loss ENT: Negative for stridor Respiratory: Negative for cough or hemoptysis All other systems reviewed and are negative MENTAL STATUS EXAMINATION General Appearance and Behavior: Age appropriate, good hygiene, wearing appropriate clothes, good eye contact, calm, cooperative Cooperation: Participating/engaged, but Guarded Psychomotor Behavior: Psychomotor normal Mood: Good Affect and affective range: congruent with stated mood Thought Process: goal directed Thought Content: None Speech: normal tone and pace Suicidal Ideation: Denies Homicidal Ideation: Denies Hallucinations: Denies Delusions: None elicited Impulse Control: Normal Insight and Judgment: Limited insight and judgment Memory: Limited Attention: Attentive Orientation: Alert, oriented Assessment and Plan Hx of Bipolar Treatment Plan Continue home medications Sitter: per primary Medical: defer to primary Disposition: Do not recommend acute psychiatric inpatient treatment Will sign off. Thanks Case staffed with Dr. Sun Medications and Allergies Allergies Allergy/AdvReac Type Severity Reaction Status Date / Time diphenhydramine HCl AdvReac Rash Verified 03/20/20 14:16 [From [facility]] Home Medications Medication Instructions Recorded Confirmed Last Taken Type Nitrofurantoin [place]/M-Cryst 100 mg PO Q12H #14 capsule 01/14/20 Unknown Rx [Macrobid CAP] risperiDONE [RisperDAL] 1 mg PO BID #60 tablet 01/14/20 Unknown Rx risperiDONE [RisperDAL] 1 mg PO BID 01/19/20 02/12/20 Unknown History Paliperidone Palmitate [Invega 156 mg IM ONCE #1 syringe 02/16/20 Unknown Rx Sustenna (Nf)] Paliperidone Palmitate [Invega 234 mg IM ONCE #1 ml 02/16/20 Unknown Rx Sustenna(Nf)] Mental Status Exam - Vital signs Last Vital Signs Temp 97.5 F L 12/27/21 03:50 Pulse 74 12/27/21 03:50 Resp 18 12/27/21 03:50 BP 139/84 12/27/21 03:50 Pulse Ox 99 12/27/21 10:08 Results Result Diagrams: 12/26/21 22:32 12/26/21 22:32 Abnormal lab results 12/26/21 12/26/21 12/26/21 Range/Units 22:32 22:32 22:32 Potassium 5.2 H (3.6-5.0) mmol/L BUN 20 H (7-17) mg/dL Salicylates < 0.3 L (2.8-20.0) mg/dL Acetaminophen 5.0 L (10.0-30.0) ug/mL All other labs normal.
== END 2021-12-27 12:08 | disposition home or self-care (01) ==
LOC: ED 19:31
DX: R45.1 Restlessness and agitation (principal); F20.9 Schizophrenia, unspecified; F31.9 Bipolar disorder, unspecified; Z21 Asymptomatic human immunodeficiency virus [HIV] infection status; Z98.890 Other specified postprocedural states; Z20.822 Contact with and (suspected) exposure to COVID-19; Z79.899 Other long term (current) drug therapy
CPT/HCPCS: 36415; 80048; 80307; 81001; 85025; 99284; U0003; 80320; G0480

== ENCOUNTER 2022-01-22 17:48 | Emergency (ER) | payer MEDICAID ==
[2022-01-22] MEDS ORDERED: ZIPRASIDONE MESYLATE 20 MG VIAL IM ONE (19:24)
[2022-01-22] MEDS ORDERED: LORazepam 2 MG/ML VIAL IM STA (19:25)
[2022-01-22 19:43] LABS: Basophils % (Auto) 0.7 % (0.0-1.8); Eosinophils # (Auto) 0.1 K/mm3 (0.0-0.4); Eosinophils % (Auto) 0.7 % (0.0-4.3); Hematocrit 42.5 % (30.3-42.9); Hemoglobin 14.3 gm/dl (10.1-14.3); Lymphocytes # (Auto) 2.3 K/mm3 (1.2-5.4); Lymphocytes % (Auto) 30.1 % (13.4-35.0); Mean Corpuscular HGB Conc 34 % (30-34); Mean Corpuscular Volume 83 fl (79-97); Monocytes # (Auto) 0.6 K/mm3 (0.0-0.8); Monocytes % (Auto) 8.6 % (0.0-7.3); Platelet Count 216 K/mm3 (140-440); Red Blood Count 5.11 M/mm3 (3.65-5.03); Red Cell Distribution Width 13.4 % (13.2-15.2)
[2022-01-22 19:50] LABS: Alanine Aminotransferase 15 units/L (7-56); Albumin 4.4 g/dL (3.9-5); BUN/Creatinine Ratio 13; Blood Urea Nitrogen 12 mg/dL (7-17); Hemolysis Index 18
--- NOTE | 2022-01-22 23:28 | Emergency Department Report ---
ED General Adult HPI - General Chief complaint: Psych Stated complaint: MH Time Seen by Provider: 01/22/22 18:47 Source: patient Mode of arrival: Ambulatory Limitations: No Limitations - History of Present Illness Initial comments: patient presents 2/2 being agitated and combative at home, Patient unable to give any history as she is not answering questions, is yelling obscenities at everyone, screaming and combative. Patient has a hx of bipolar disorder and missed her dose of invega this week. - Related Data Home Medications Medication Instructions Recorded Confirmed Last Taken risperiDONE [RisperDAL] 1 mg PO BID 01/19/20 02/12/20 Unknown Previous Rx's Medication Instructions Recorded Last Taken Type Nitrofurantoin [place]/M-Cryst 100 mg PO Q12H #14 capsule 01/14/20 Unknown Rx [Macrobid CAP] risperiDONE [RisperDAL] 1 mg PO BID #60 tablet 01/14/20 Unknown Rx Paliperidone Palmitate [Invega 156 mg IM ONCE #1 syringe 02/16/20 Unknown Rx Sustenna (Nf)] Paliperidone Palmitate [Invega 234 mg IM ONCE #1 ml 02/16/20 Unknown Rx Sustenna(Nf)] Allergies Allergy/AdvReac Type Severity Reaction Status Date / Time diphenhydramine HCl AdvReac Rash Verified 03/20/20 14:16 [From Benadryl] ED Review of Systems ROS: Stated complaint: MH Other details as noted in HPI Comment: Unobtainable due to pts medical conditions ED Past Medical Hx - Past Medical History Hx Psychiatric Treatment: Yes (bipolar, schizophrenia) Hx HIV: Yes Additional medical history: HIV - Surgical History Additional Surgical History: unknown - Social History Smoking Status: Never Smoker (Patient dips tobacco) Substance Use Type: None (Denies illicit drug use) - Medications Home Medications: Home Medications Medication Instructions Recorded Confirmed Last Taken Type Nitrofurantoin [place]/M-Cryst 100 mg PO Q12H #14 capsule 01/14/20 Unknown Rx [Macrobid CAP] risperiDONE [RisperDAL] 1 mg PO BID #60 tablet 01/14/20 Unknown Rx risperiDONE [RisperDAL] 1 mg PO BID 01/19/20 02/12/20 Unknown History Paliperidone Palmitate [Invega 156 mg IM ONCE #1 syringe 02/16/20 Unknown Rx Sustenna (Nf)] Paliperidone Palmitate [Invega 234 mg IM ONCE #1 ml 02/16/20 Unknown Rx Sustenna(Nf)] ED Physical Exam - General Limitations: No Limitations General appearance: alert, other (combative) - Head Head exam: Present: atraumatic, normocephalic - Eye Eye exam: Present: PERRL, EOMI - ENT ENT exam: Present: mucous membranes moist, other (airway patent) - Neck Neck exam: Present: full ROM, other (no JVD; no swelling) - Respiratory Respiratory exam: Present: other (good air entry, nml I:E, CTAB, no use of RUMA) - Cardiovascular Cardiovascular Exam: Present: regular rate. Absent: rubs, gallop - GI/Abdominal GI/Abdominal exam: Present: soft, normal bowel sounds. Absent: distended, tenderness - Extremities Exam Extremities exam: Present: full ROM, other (no deformity). Absent: tenderness - Back Exam Back exam: Present: full ROM. Absent: tenderness - Neurological Exam Neurological exam: Present: alert, other (combative; GCS 14/15 ([id number]); no gross CN palsies; moving all extremities equally) - Psychiatric Psychiatric exam: Present: other (agitated; with suggestions of persecutory delusions and visual hallucinations) - Skin Skin exam: Present: warm, normal color ED Course Vital Signs 01/22/22 19:57 Temperature 97.5 F L Pulse Rate 119 H Respiratory 18 Rate Blood Pressure 135/85 [Left] O2 Sat by Pulse 98 Oximetry ED Medical Decision Making - Lab Data Result diagrams: 01/22/22 19:14 01/22/22 19:14 Laboratory Tests 01/22/22 01/22/22 01/22/22 19:14 19:14 19:14 WBC 7.5 RBC 5.11 H Hgb 14.3 Hct 42.5 MCV 83 MCH 28 MCHC 34 RDW 13.4 Plt Count 216 Lymph % (Auto) 30.1 [place] % (Auto) 8.6 H Eos % (Auto) 0.7 Baso % (Auto) 0.7 Lymph # (Auto) 2.3 [place] # (Auto) 0.6 Eos # (Auto) 0.1 Baso # (Auto) 0.0 Seg Neutrophils % 59.9 Seg Neutrophils # 4.5 Sodium 140 Potassium 3.8 Chloride 102.5 Carbon Dioxide 24 Anion Gap 17 BUN 12 Creatinine 0.9 Estimated GFR > 60 BUN/Creatinine Ratio 13 Glucose 99 Calcium 10.0 Total Bilirubin 0.40 AST 16 ALT 15 Alkaline Phosphatase 72 Total Protein 7.6 Albumin 4.4 Albumin/Globulin Ratio 1.4 HCG, Qual Salicylates Acetaminophen 5.0 L Plasma/Serum Alcohol 01/22/22 01/22/22 01/22/22 19:14 19:14 19:14 WBC RBC Hgb Hct MCV MCH MCHC RDW Plt Count Lymph % (Auto) [place] % (Auto) Eos % (Auto) Baso % (Auto) Lymph # (Auto) [place] # (Auto) Eos # (Auto) Baso # (Auto) Seg Neutrophils % Seg Neutrophils # Sodium Potassium Chloride Carbon Dioxide Anion Gap BUN Creatinine Estimated GFR BUN/Creatinine Ratio Glucose Calcium Total Bilirubin AST ALT Alkaline Phosphatase Total Protein Albumin Albumin/Globulin Ratio HCG, Qual Negative Salicylates < 0.3 L Acetaminophen Plasma/Serum Alcohol < 0.01 UA pending EKG HR 96, SR, nml intervals, no significant ST changes in contiguous leads - Medical Decision Making 1013 signed. Psych consulted. Critical care attestation.: If time is entered above; I have spent that time in minutes in the direct care of this critically ill patient, excluding procedure time. ED Disposition Clinical Impression: Acute psychosis Disposition: 30 STILL A PATIENT Is pt being admited?: No Condition: Stable Referrals: BRIAN LABOY MD [Primary Care Provider] - 3-5 Days Time of Disposition: 23:55 (Patient care transferred to the night time ER doc (Dr. Lantigua). Sign out was given by me to the physician. )
--- NOTE | 2022-01-23 09:54 | Consultation ---
History of Present Illness - Reason for Consult Consult date: 01/23/22 Reason for consult: agitation - History of Present Psychiatric Illness HPI: patient presents 2/2 being agitated and combative at home, Patient unable to give any history as she is not answering questions, is yelling obscenities at everyone, screaming and combative. Patient has a hx of bipolar disorder and missed her dose of invega this week. The patient was seen today. Her thoughts are disorganized. She is difficult to follow, and yelling at the nurse. Her speech is nonsensical. The patient is also making weird movements with her hands behind the nurses back. She denies SI/HI o r hallucinations, and states "I'm not sure why they brought me here." The patient apparently missed her dose of Invega Sustenna. PAST PSYCHIATRIC HISTORY Diagnoses: Bipolar Suicide attempts or Self-harm behavior: Denies Prior psychiatric hospitalizations: Yes Substance Abuse history: Denies Previous psychiatric medications tried: could not recall Outpatient treatment: Yes PAST MEDICAL HISTORY: None reported Family Psychiatric History: None reported or documented SOCIAL HISTORY Living arrangement: [facility] Marital status: Single Employment status: Unemployed REVIEW OF SYSTEMS Constitutional: Negative for weight loss ENT: Negative for stridor Respiratory: Negative for cough or hemoptysis All other systems reviewed and are negative MENTAL STATUS EXAMINATION General Appearance and Behavior: Age appropriate, good hygiene, wearing remedios ropriate clothes, good eye contact, irritable, cooperative Cooperation: Participating/engaged, but Guarded Psychomotor Behavior: Psychomotor normal Mood: upset Affect and affective range: congruent with stated mood Thought Process: disorganized Thought Content: None Speech: disorganized Suicidal Ideation: Denies Homicidal Ideation: Denies Hallucinations: Denies Delusions: None elicited Impulse Control: Normal Insight and Judgment: Limited insight and judgment Memory: Limited Attention: divided Orientation: Alert, oriented Assessment and Plan Hx of Bipolar Treatment Plan Inverga Sustenna 156mg IM x 1 Risperidone 1mg po BID Sitter: per primary Medical: defer to primary Disposition: Recommend acute psychiatric inpatient treatment. The patient missed Invega Sustenna injection. If the patient's thoughts become more organized after admin of meds may consider clearing the patient. Will follow. Thanks Case staffed with Dr. Sun Medications and Allergies Allergies Allergy/AdvReac Type Severity Reaction Status Date / Time diphenhydramine HCl AdvReac Rash Verified 03/20/20 14:16 [From Benadryl] Home Medications Medication Instructions Recorded Confirmed Last Taken Type Nitrofurantoin [place]/M-Cryst 100 mg PO Q12H #14 capsule 01/14/20 Unknown Rx [Macrobid CAP] risperiDONE [RisperDAL] 1 mg PO BID #60 tablet 01/14/20 Unknown Rx risperiDONE [RisperDAL] 1 mg PO BID 01/19/20 02/12/20 Unknown History Paliperidone Palmitate [Invega 156 mg IM ONCE #1 syringe 02/16/20 Unknown Rx Sustenna (Nf)] Paliperidone Palmitate [Invega 234 mg IM ONCE #1 ml 02/16/20 Unknown Rx Sustenna(Nf)] Mental Status Exam - Vital signs Last Vital Signs Temp 97.7 F 01/23/22 02:33 Pulse 73 01/23/22 02:33 Resp 16 01/23/22 02:33 BP 129/84 01/23/22 02:33 Pulse Ox 97 01/23/22 08:56 Results Result Diagrams: 01/22/22 19:14 01/22/22 19:14 Abnormal lab results 01/22/22 01/22/22 01/22/22 Range/Units 19:14 19:14 19:14 RBC 5.11 H (3.65-5.03) M/mm3 [place] % (Auto) 8.6 H (0.0-7.3) % Salicylates < 0.3 L (2.8-20.0) mg/dL Acetaminophen 5.0 L (10.0-30.0) ug/mL All other labs normal.
[2022-01-23] MEDS ORDERED: PALIPERIDONE PALMITATE 156 MG/ML INJ IM ONE (11:00)
[2022-01-23] MEDS: risperiDONE 1 MG TAB PO SCH ×2 (11:04→22:00)
[2022-01-23] MEDS ORDERED: ZIPRASIDONE MESYLATE 20 MG VIAL IM PRN (12:00)
--- NOTE | 2022-01-23 12:58 | Electrocardiograph Report ---
[facility] Test Date: 2022-01-22 Test Time: 23:52:56 Pat Name: JANETH FINCH Department: Room: Gender: F Ready To Wear Department Manager: ZULY : 1970 Requested By: REG VARELA Order Number: [id number] Reading MD: Eduin Carrera Measurements Intervals [place] Rate: 92 P: 7 HI: 147 QRS: 37 QRSD: 95 T: 19 QT: 356 QTc: 442 Interpretive Statements Sinus rhythm No previous ECG available for comparison Electronically Signed On 01-23-2022 12:57:39 EDT by Eduin Carrera
[2022-01-23 14:39] LABS: Amphetamine Screen,Urine Negative; Benzodiazepines Screen,Urine Negative; Cannabinoid Screen,Urine Negative; Cocaine Screen,Urine Negative; Methadone Screen,Urine Negative; Opiate Screen,Urine Negative
[2022-01-23 14:45] LABS: Bacteria,Urine 4+ /HPF (Negative); Bilirubin,Urine NEG (Negative); Blood,Urine NEG (Negative); Calcium Oxalate Crystals,Urine 1+; Color,Urine Yellow (Yellow); Hyaline Casts,Urine 3 /LPF; Mucus,Urine 3+ /HPF; Protein,Urine <15 mg/dL mg/dL (Negative); Urobilinogen,Urine < 2.0 mg/dL (<2.0)
[2022-01-24 09:10] VITALS: BP 142/86
--- NOTE | 2022-01-24 10:16 | Progress Note ---
Subjective - Reason for Consult Consult date: 01/24/22 Reason for consult: hallucinations - Chief Complaint Chief complaint: The patient was seen today. Her thoughts are disorganized. Her speech is nonsensical. She is rambling and ranting. She is difficult to follow. She denies SI/HI. REVIEW OF SYSTEMS Constitutional: Negative for weight loss ENT: Negative for stridor Respiratory: Negative for cough or hemoptysis All other systems reviewed and are negative MENTAL STATUS EXAMINATION General Appearance and Behavior: Age appropriate, good hygiene, wearing appropriate clothes, good eye contact, irritable, cooperative Cooperation: Participating/engaged, but Guarded Psychomotor Behavior: Psychomotor normal Mood: okay Affect and affective range: congruent with stated mood Thought Process: disorganized Thought Content: None Speech: disorganized, nonsensical Suicidal Ideation: Denies Homicidal Ideation: Denies Hallucinations: Denies Delusions: None elicited Impulse Control: Normal Insight and Judgment: Limited insight and judgment Memory: Limited Attention: divided Orientation: Alert, oriented Assessment and Plan Bipolar Disorder Treatment Plan 1013 Increase Risperidone 1mg po TID Start Depakote DR 125mg po BID Sitter: per primary Medical: defer to primary Disposition: Recommend acute psychiatric inpatient treatment. Will follow. Thanks Case staffed with Dr. Sun Mental Status Exam - Vital signs Last Vital Signs Temp 98.4 F 01/24/22 09:09 Pulse 117 H 01/24/22 09:09 Resp 20 01/24/22 09:09 BP 142/86 01/24/22 09:09 Pulse Ox 97 01/24/22 09:09
[2022-01-24] MEDS: risperiDONE 1 MG TAB PO SCH (10:31)
[2022-01-24] MEDS ORDERED: DIVALPROEX DR 125 MG TAB PO SCH (11:00)
[2022-01-24] MEDS ORDERED: risperiDONE 1 MG TAB PO SCH (14:00)
--- NOTE | 2022-01-24 15:26 | Emergency Department Report ---
Blank Doc - Documentation Documentation: I have evaluated patient. Patient has been agitated. She is easily redirected verbally. She remains on 1013 and is awaiting acute inpatient psychiatric placement.
== END 2022-01-24 18:04 | disposition still patient (30) ==
LOC: ED 17:48
DX: F20.9 Schizophrenia, unspecified (principal); F31.9 Bipolar disorder, unspecified; Z20.822 Contact with and (suspected) exposure to COVID-19; Z79.899 Other long term (current) drug therapy; Z88.8 Allergy status to other drugs, medicaments and biological substances
CPT/HCPCS: 36415; 80053; 80307; 80320; 81001; 84703; 85025; 87086; 93005; G0480; J2060; J2426; J3486; U0003

== ENCOUNTER 2022-01-24 16:06 | Inpatient (IN) | payer MEDICAID ==
[2022-01-24] MEDS: risperiDONE 1 MG TAB PO SCH (22:00)
[2022-01-24 23:27] LABS: Basophils % (Auto) 0.6 % (0.0-1.8); Eosinophils # (Auto) 0.1 K/mm3 (0.0-0.4); Eosinophils % (Auto) 1.7 % (0.0-4.3); Hematocrit 40.9 % (30.3-42.9); Hemoglobin 13.6 gm/dl (10.1-14.3); Lymphocytes # (Auto) 2.9 K/mm3 (1.2-5.4); Lymphocytes % (Auto) 37.9 % (13.4-35.0); Mean Corpuscular HGB Conc 33 % (30-34); Mean Corpuscular Volume 83 fl (79-97); Monocytes # (Auto) 0.7 K/mm3 (0.0-0.8); Monocytes % (Auto) 9.1 % (0.0-7.3); Platelet Count 232 K/mm3 (140-440); Red Blood Count 4.91 M/mm3 (3.65-5.03); Red Cell Distribution Width 13.6 % (13.2-15.2)
[2022-01-25 00:31] LABS: Alanine Aminotransferase 23 units/L (7-56); Albumin 4.2 g/dL (3.9-5); BUN/Creatinine Ratio 24; Blood Urea Nitrogen 22 mg/dL (7-17); Calcium 9.9 mg/dL (8.4-10.2); Chol/HDL Ratio 4.61 %; HDL Cholesterol 42 mg/dL (40-59); Hemolysis Index 7; LDL Cholesterol,Direct 132 mg/dL (50-130)
[2022-01-25] MEDS: risperiDONE 1 MG TAB PO SCH ×2 (09:35→21:37)
--- NOTE | 2022-01-25 09:59 | History and Physical Report ---
GP History & Physical - History of Present Illness Date of admission: 01/24/22 Date of Examination: 01/25/22 Reason for Admission: Danger to self, Failure of Outpatient Treatment, Severe anxiety/depression History of Present Illness: ER Note: The patient was seen today. Her thoughts are disorganized. She is difficult to follow, and yelling at the nurse. Her speech is nonsensical. The patient is also making weird movements with her hands behind the nurses back. She denies SI/HI or hallucinations, and states "I'm not sure why they brought me here." The patient apparently missed her dose of Invega Sustenna. The patient was seen today. I started treating this patient in the ER. During that time the patient was disorganized, and yelling. Today her speech is still disorganized. Some things are clear. The patient then starts ranting and m umbling incoherently. She denies SI/HI or hallucinations. PAST PSYCHIATRIC HISTORY Diagnoses: Bipolar Suicide attempts or Self-harm behavior: Denies Prior psychiatric hospitalizations: Yes Substance Abuse history: Denies Previous psychiatric medications tried: could not recall Outpatient treatment: Yes PAST MEDICAL HISTORY: None reported Family Psychiatric History: None reported or documented SOCIAL HISTORY Living arrangement: [facility] Marital status: Single Employment status: Unemployed REVIEW OF SYSTEMS Constitutional: Negative for weight loss ENT: Negative for stridor Respiratory: Negative for cough or hemoptysis All other systems reviewed and are negative MENTAL STATUS EXAMINATION General Appearance and Behavior: Age appropriate, good hygiene, wearing appropriate clothes, good eye contact, irritable, cooperative Cooperation: Participating/engaged, but Guarded Psychomotor Behavior: Psychomotor normal Mood: upset Affect and affective range: congruent with stated mood Thought Process: disorganized Thought Content: None Speech: disorganized Suicidal Ideation: Denies Homicidal Ideation: Denies Hallucinations: Denies Delusions: None elicited Impulse Control: Normal Insight and Judgment: Limited insight and judgment Memory: Limited Attention: divided Orientation: Alert, oriented Assessment and Plan Bipolar Disorder Treatment Plan Patient admitted for inpatient psychiatric evaluation, medication adjustment and close monitoring The patient's behavior, mood, sleep and appetite will be closely monitored. Patient enrolled in individual and group therapeutic sessions and encouraged to attend. Patient provided with a safe and structured environment. Patient's physical health needs will be addressed by the Hospitalist. Hospitalist Consulted Labs including CBC, CMP, Lipid profile and Hemoglobin A1C levels ordered for baseline reference Social Assessment will be completed and the Charting Clerk will work with patient and family to ensure a suitable and safe disposition Medication adjustment will be made as clinically indicated Inverga Sustenna 156mg IM x 1 given in ER Depakote DT 125mg po BID Doxepin 10mg po qhs Risperidone 1mg po BID Usual Wellness Islam/Preservation: - Start Trazodone 50 mg po QHS & 50 mg po QHS PRN between 10 PM & 2 AM for insomnia - Start Melatonin 5 mg po QHS to promote circadian rhythm The patient agreed on the treatment plan, understood the risk, benefit, alternative treatment, potential consequence of no treatment, and gave informed consent. Estimated days: 5 Post hospital care: primary care provider, psychiatric provider Case staffed with Dr. Sun Legal Status: Voluntary Reaction to Hospitalization: Accepting Medications and Allergies Allergies Allergy/AdvReac Type Severity Reaction Status Date / Time diphenhydramine HCl AdvReac Rash Verified 03/20/20 14:[facility] Home Medications Medication Instructions Recorded Confirmed Last Taken Type risperiDONE [RisperDAL] 1 mg PO BID 01/19/20 01/25/22 Unknown History Paliperidone Palmitate [Invega 156 mg IM ONCE #1 syringe 02/16/20 01/25/22 Unknown Rx Sustenna (Nf)] Paliperidone Palmitate [Invega 234 mg IM ONCE #1 ml 02/16/20 01/25/22 Unknown Rx Sustenna(Nf)] Nitrofurantoin [place]/M-Cryst 100 mg PO Q12H #14 capsule 01/24/22 01/25/22 Unknown Rx [Macrobid CAP] Active Meds: Active Medications Risperidone (Risperidone 1 Mg Tab) 1 mg PO BID ANNIE Last Admin: 01/25/22 09:35 Dose: 1 mg Results - Results Labs/Vitals: Laboratory Last Values WBC 7.6 K/mm3 (4.5-11.0) 01/24/22 22:59 RBC 4.91 M/mm3 (3.65-5.03) 01/24/22 22:59 Hgb 13.6 gm/dl (10.1-14.3) 01/24/22 22:59 Hct 40.9 % (30.3-42.9) 01/24/22 22:59 MCV 83 fl (79-97) 01/24/22 22:59 MCH 28 pg (28-32) 01/24/22 22:59 MCHC 33 % (30-34) 01/24/22 22:59 RDW 13.6 % (13.2-15.2) 01/24/22 22:59 Plt Count 232 K/mm3 (140-440) 01/24/22 22:59 Lymph % (Auto) 37.9 % (13.4-35.0) H 01/24/22 22:59 [place] % (Auto) 9.1 % (0.0-7.3) H 01/24/22 22:59 Eos % (Auto) 1.7 % (0.0-4.3) 01/24/22 22:59 Baso % (Auto) 0.6 % (0.0-1.8) 01/24/22:59 Lymph # (Auto) 2.9 K/mm3 (1.2-5.4) 01/24/22 22:59 [place] # (Auto) 0.7 K/mm3 (0.0-0.8) 01/24/22:59 Eos # (Auto) 0.1 K/mm3 (0.0-0.4) 01/24/22 22:59 Baso # (Auto) 0.0 K/mm3 (0.0-0.1) 01/24/22 22:59 Seg Neutrophils % 50.7 % (40.0-70.0) 01/24/22:59 Seg Neutrophils # 3.8 K/mm3 (1.8-7.7) 01/24/22 22:59 Sodium 139 mmol/L (137-145) 01/24/22 22:59 Potassium 3.8 mmol/L (3.6-5.0) 01/24/22 22:59 Chloride 103.4 mmol/L (98-107) 01/24/22 22:59 Carbon Dioxide 19 mmol/L (22-30) L 01/24/22 22:59 Anion Gap 20 mmol/L 01/24/22 22:59 BUN 22 mg/dL (7-17) H 01/24/22 22:59 Creatinine 0.9 mg/dL (0.6-1.2) 01/24/22 22:59 Estimated GFR > 60 ml/min 01/24/22 22:59 BUN/Creatinine Ratio 24 % 01/24/22 22:59 Glucose 103 mg/dL (65-100) H 01/24/22 22:59 Hemoglobin A1c 5.5 % (4-6) 01/24/22 22:59 Calcium 9.9 mg/dL (8.4-10.2) 01/24/22 22:59 Total Bilirubin 0.40 mg/dL (0.1-1.2) 01/24/22 22:59 AST 30 units/L (5-40) 01/24/22 22:59 ALT 23 units/L (7-56) 01/24/22 22:59 Alkaline Phosphatase 73 units/L (35-129) 01/24/22 22:59 Total Protein 7.6 g/dL (6.3-8.2) 01/24/22 22:59 Albumin 4.2 g/dL (3.9-5) 01/24/22 22:59 Albumin/Globulin Ratio 1.2 % 01/24/22 22:59 Triglycerides 135 mg/dL (2-149) 01/24/22 22:59 Cholesterol 194 mg/dL (50-199) 01/24/22 22:59 LDL Cholesterol Direct 132 mg/dL (50-130) H 01/24/22 22:59 HDL Cholesterol 42 mg/dL (40-59) 01/24/22 22:59 Cholesterol/HDL Ratio 4.61 % 01/24/22 22:59 TSH 0.606 mlU/mL (0.270-4.200) 01/24/22 22:59 Last Vital Signs Temp 98.5 F 01/25/22 09:17 Pulse 112 H 01/25/22 09:17 Resp 20 01/25/22 09:17 BP 133/88 01/25/22 09:17 Pulse Ox 93 01/25/22 09:17 Physical Examination - Constitutional Vitals: Vital Signs Temp Pulse Resp BP Pulse Ox 98.5 F 112 H 20 133/88 93 01/25/22 09:17 01/25/22 09:17 01/25/22 09:17 01/25/22 09:17 01/25/22 09:17 Temperature -Last 24 Hours Temperature 98.5 F Temperature 98.5 F Temperature 98.5 F Temperature 98.0 F Mental Status Exam - Vital signs Last Vital Signs Temp 98.5 F 01/25/22 09:17 Pulse 112 H 01/25/22 09:17 Resp 20 01/25/22 09:17 BP 133/88 01/25/22 09:17 Pulse Ox 93 01/25/22 09:17 Physician Certification - Certification Statement Physician Certification Statement: This is an acknowledgement statement that JANETH FINCH is a 51 year old F who requires inpatient psychiatric admission for treatment which could reasona tre be expected to improve the patient's condition for Estimated period of time patient will need to remain in the hospital: [ ] Plan for post-hospital care: [ ]
--- NOTE | 2022-01-25 10:13 | Consultation ---
History of Present Illness - Reason for Consult Consult date: 01/25/22 Medical management Requesting physician: SURESH CARR - History of Present Illness 51 YO Female with HIV, Bipolar Disorder, Schizophrenia admitted to [facility] for psychiatric stabilization. Consult placed by Dr. Carr for medical management. Patient seen and evaluated in the recreation room. Patient denies fever, chills, chest pain, palpitation, adductive cough, skin rash, recent contact, no exposure to COVID-19. No reported nursing events. Patient is at baseline level of cognition and function. Past History Past Medical History: HIV/AIDS, other (See HPI) Past Surgical History: No surgical history, Other (Reviewed) Social history: single. denies: smoking, alcohol abuse Family history: hypertension Medications and Allergies Allergies Allergy/AdvReac Type Severity Reaction Status Date / Time diphenhydramine HCl AdvReac Rash Verified 03/20/20 14:16 [From Benadryl] Home Medications Medication Instructions Recorded Confirmed Last Taken Type risperiDONE [RisperDAL] 1 mg PO BID 01/19/20 01/25/22 Unknown History Paliperidone Palmitate [Invega 156 mg IM ONCE #1 syringe 02/16/20 01/25/22 Unknown Rx Sustenna (Nf)] Paliperidone Palmitate [Invega 234 mg IM ONCE #1 ml 02/16/20 01/25/22 Unknown Rx Sustenna(Nf)] Nitrofurantoin [place]/M-Cryst 100 mg PO Q12H #14 capsule 01/24/22 01/25/22 Unknown Rx [Macrobid CAP] Active Meds: Active Medications Divalproex Sodium (Divalproex Dr 125 Mg Tab) 125 mg PO BID ANNIE Doxepin HCl (Doxepin 10 Mg Cap) 10 mg PO QHS ANNIE Risperidone (Risperidone 1 Mg Tab) 1 mg PO BID ANNIE Last Admin: 01/25/22 09:35 Dose: 1 mg Review of Systems Constitutional: no weight loss, no weight gain, no fever, no chills Ears, nose, mouth and throat: no ear pain, no tinnitis, no decreased hearing Breasts: no change in shape, no swelling Cardiovascular: no chest pain, no orthopnea, no palpitations, no rapid/irregular heart beat, no edema, no syncope, no shortness of breath Respiratory: no cough with sputum, no excessive sputum, no shortness of breath, no dyspnea on exertion Gastrointestinal: no abdominal pain, no nausea, no vomiting, no diarrhea, no constipation Genitourinary Female: no pelvic pain, no flank pain, no dysuria, no urinary frequency, no urgency Rectal: no pain, no incontinence, no bleeding Musculoskeletal: no neck stiffness, no arm numbness/tingling Integumentary: no rash, no pruritis, no sores, no wounds, no jaundice Neurological: no head injury, no transient paralysis, no weakness, no numbness, no seizures, no syncope Psychiatric: anxiety, irritability, sadness/tearfullness, mood swings Endocrine: no cold intolerance, no heat intolerance, no polydipsia, no nocturia Hematologic/Lymphatic: no easy bruising Allergic/Immunologic: no allergic rhinitis Exam - Constitutional Vitals: Temp Pulse Resp BP Pulse Ox 98.5 F 112 H 20 133/88 93 01/25/22 09:17 01/25/22 09:17 01/25/22 09:17 01/25/22 09:17 01/25/22 09:17 General appearance: Present: no acute distress, well-nourished - EENT Eyes: Present: PERRL ENT: hearing intact, clear oral mucosa - Neck Neck: Present: supple, normal ROM - Respiratory Respiratory effort: normal Respiratory: bilateral: CTA - Cardiovascular Heart Sounds: Present: S1 & S2. Absent: rub, click - Extremities Extremities: pulses symmetrical, No edema Peripheral Pulses: within normal limits - Abdominal General gastrointestinal: Present: soft, non-tender, non-distended, normal bowel sounds Female genitourinary: Present: normal - Integumentary Integumentary: Present: clear, warm, dry - Musculoskeletal Musculoskeletal: gait normal, strength equal bilaterally - Psychiatric Psychiatric: appropriate mood/affect, intact judgment & insight - Neurologic Neurologic: CNII-XII intact, moves all extremities Results - Labs CBC & Chem 7: 01/24/22 22:59 01/24/22 22:59 Labs: Abnormal lab results 01/24/22 01/24/22 Range/Units 22:59 22:59 Lymph % (Auto) 37.9 H (13.4-35.0) % [place] % (Auto) 9.1 H (0.0-7.3) % Carbon Dioxide 19 L (22-30) mmol/L BUN 22 H (7-17) mg/dL Glucose 103 H (65-100) mg/dL LDL Cholesterol Direct 132 H (50-130) mg/dL Assessment and Plan - Patient Problems (1) Acute psychosis Current Visit: No Status: Acute Plan to address problem: Supportive care, continue medical management, cognitive behavioral therapy. (2) Bipolar disorder Current Visit: Yes Status: Acute Plan to address problem: Continue medical management, supportive care. (3) HIV (human immunodeficiency virus infection) Current Visit: Yes Status: Acute Plan to address problem: Outpatient infectious disease follow-up. (4) Schizophrenia Current Visit: Yes Status: Acute Qualifiers: Schizophrenia type: unspecified Qualified Code(s): F20.9 - Schizophrenia, unspecified Plan to address problem: Continue medical management. (5) Advance care planning Current Visit: Yes Status: Acute Plan to address problem: Disease education done, care plan discussed, diagnosis discussed, patient is full code. +30 minutes.
[2022-01-25] MEDS: DIVALPROEX DR 125 MG TAB PO SCH ×2 (11:55→21:37)
[2022-01-25] MEDS ORDERED: NITROFURANTOIN MONOHYD/M-CRYST 100 MG CAP PO SCH (14:00)
[2022-01-25] MEDS: DOXEPIN 10 MG CAP PO SCH (21:37)
[2022-01-25] MEDS: NITROFURANTOIN MONOHYD/M-CRYST 100 MG CAP PO SCH (22:09)
[2022-01-26] MEDS: risperiDONE 1 MG TAB PO SCH ×2 (09:33→21:24)
[2022-01-26] MEDS: DIVALPROEX DR 125 MG TAB PO SCH ×3 (09:33→20:44)
--- NOTE | 2022-01-26 09:34 | Progress Note ---
Subjective Date of service: 01/26/22 Principal diagnosis: Schizophrenia Subjective Comment: The patient was seen today. She starts making bizarre sounds when I walk up to her. Her speech is disorganized and nonsensical at times. She does answer some questions logically. She denies SI/HI or hallucinations. I ask the patient why was she making the weird noises. She replies "you tell me." I ask her how did she sleep, she mumbles something then claps her hand. REVIEW OF SYSTEMS Constitutional: Negative for weight loss ENT: Negative for stridor Respiratory: Negative for cough or hemoptysis All other systems reviewed and are negative MENTAL STATUS EXAMINATION General Appearance and Behavior: Age appropriate, good hygiene, wearing appropriate clothes, good eye contact, irritable, cooperative Cooperation: Participating/engaged, but Guarded Psychomotor Behavior: Psychomotor normal Mood: upset Affect and affective range: congruent with stated mood Thought Process: disorganized Thought Content: None Speech: disorganized Suicidal Ideation: Denies Homicidal Ideation: Denies Hallucinations: Denies Delusions: None elicited Impulse Control: Normal Insight and Judgment: Limited insight and judgment Memory: Limited Attention: divided Orientation: Alert, oriented Assessment and Plan Schizophrenia Treatment Plan Patient admitted for inpatient psychiatric evaluation, medication adjustment and close monitoring The patient's behavior, mood, sleep and appetite will be closely monitored. Patient enrolled in individual and group therapeutic sessions and encouraged to attend. Patient provided with a safe and structured environment. Patient's physical health needs will be addressed by the Hospitalist. Hospitalist Consulted Labs including CBC, CMP, Lipid profile and Hemoglobin A1C levels ordered for baseline reference Social Assessment will be completed and the Passenger Elevator Operator will work with patient and family to ensure a suitable and safe disposition Medication adjustment will be made as clinically indicated Inverga Sustenna 156mg IM x 1 given in ER Increase Depakote DT 125mg po TID Doxepin 10mg po qhs Increase Risperidone 1.5mg po BID Usual Wellness Adventism/Preservation: - Start Trazodone 50 mg po QHS & 50 mg po QHS PRN between 10 PM & 2 AM for insomnia - Start Melatonin 5 mg po QHS to promote circadian rhythm The patient agreed on the treatment plan, understood the risk, benefit, alternative treatment, potential consequence of no treatment, and gave informed consent. Estimated days: 5 Post hospital care: primary care provider, psychiatric provider Case staffed with Dr. Sun Medications and Allergies Allergies Allergy/AdvReac Type Severity Reaction Status Date / Time diphenhydramine HCl AdvReac Rash Verified 03/20/20 14:16 [From Benadl] Home Medications Medication Instructions Recorded Confirmed Last Taken Type risperiDONE [RisperDAL] 1 mg PO BID 01/19/20 01/25/22 Unknown History Paliperidone Palmitate [Invega 156 mg IM ONCE #1 syringe 02/16/20 01/25/22 Unknown Rx Sustenna (Nf)] Paliperidone Palmitate [Invega 234 mg IM ONCE #1 ml 02/16/20 01/25/22 Unknown Rx Sustenna(Nf)] Nitrofurantoin [place]/M-Cryst 100 mg PO Q12H #14 capsule 01/24/22 01/25/22 Unknown Rx [Macrobid CAP] Active Meds: Active Medications Divalproex Sodium (Divalproex Dr 125 Mg Tab) 125 mg PO BID [facility] Last Admin: 01/25/22 21:37 Dose: 125 mg Doxepin HCl (Doxepin 10 Mg Cap) 10 mg PO QHS [facility] Last Admin: 01/25/22 21:37 Dose: 10 mg Nitrofurantoin Macrocrystals (Nitrofurantoin Monohyd/M-Cryst 100 Mg Cap) 100 mg PO Q12H [facility] Stop: 02/01/22 10:01 Last Admin: 01/25/22 22:09 Dose: 100 mg Risperidone (Risperidone 1 Mg Tab) 1 mg PO BID [facility] Last Admin: 01/25/22 21:37 Dose: 1 mg Results - Results Labs/Vitals: Laboratory Last Values WBC 7.6 K/mm3 (4.5-11.0) 01/24/22 22:59 RBC 4.91 M/mm3 (3.65-5.03) 01/24/22 22:59 Hgb 13.6 gm/dl (10.1-14.3) 01/24/22 22:59 Hct 40.9 % (30.3-42.9) 01/24/22 22:59 MCV 83 fl (79-97) 01/24/22 22:59 MCH 28 pg (28-32) 01/24/22 22:59 MCHC 33 % (30-34) 01/24/22 22:59 RDW 13.6 % (13.2-15.2) 01/24/22 22:59 Plt Count 232 K/mm3 (140-440) 01/24/22 22:59 Lymph % (Auto) 37.9 % (13.4-35.0) H 01/24/22 22:59 [place] % (Auto) 9.1 % (0.0-7.3) H 01/24/22 22:59 Eos % (Auto) 1.7 % (0.0-4.3) 01/24/22 22:59 Baso % (Auto) 0.6 % (0.0-1.8) 01/24/22 22:59 Lymph # (Auto) 2.9 K/mm3 (1.2-5.4) 01/24/22 22:59 [place] # (Auto) 0.7 K/mm3 (0.0-0.8) 01/24/22 22:59 Eos # (Auto) 0.1 K/mm3 (0.0-0.4) 01/24/22 22:59 Baso # (Auto) 0.0 K/mm3 (0.0-0.1) 01/24/22 22:59 Seg Neutrophils % 50.7 % (40.0-70.0) 01/24/22 22:59 Seg Neutrophils # 3.8 K/mm3 (1.8-7.7) 01/24/22 22:59 Sodium 139 mmol/L (137-145) 01/24/22 22:59 Potassium 3.8 mmol/L (3.6-5.0) 01/24/22 22:59 Chloride 103.4 mmol/L (98-107) 01/24/22 22:59 Carbon Dioxide 19 mmol/L (22-30) L 01/24/22 22:59 Anion Gap 20 mmol/L 01/24/22 22:59 BUN 22 mg/dL (7-17) H 01/24/22 22:59 Creatinine 0.9 mg/dL (0.6-1.2) 01/24/22 22:59 Estimated GFR > 60 ml/min 01/24/22 22:59 BUN/Creatinine Ratio 24 % 01/24/22 22:59 Glucose 103 mg/dL (65-100) H 01/24/22 22:59 Hemoglobin A1c 5.5 % (4-6) 01/24/22 22:59 Calcium 9.9 mg/dL (8.4-10.2) 01/24/22 22:59 Total Bilirubin 0.40 mg/dL (0.1-1.2) 01/24/22 22:59 AST 30 units/L (5-40) 01/24/22 22:59 ALT 23 units/L (7-56) 01/24/22 22:59 Alkaline Phosphatase 73 units/L (35-129) 01/24/22 22:59 Total Protein 7.6 g/dL (6.3-8.2) 01/24/22 22:59 Albumin 4.2 g/dL (3.9-5) 01/24/22 22:59 Albumin/Globulin Ratio 1.2 % 01/24/22 22:59 Triglycerides 135 mg/dL (2-149) 01/24/22 22:59 Cholesterol 194 mg/dL (50-199) 01/24/22 22:59 LDL Cholesterol Direct 132 mg/dL (50-130) H 01/24/22 22:59 HDL Cholesterol 42 mg/dL (40-59) 01/24/22 22:59 Cholesterol/HDL Ratio 4.61 % 01/24/22 22:59 TSH 0.606 mlU/mL (0.270-4.200) 01/24/22 22:59 Last Vital Signs Temp 98.4 F 01/26/22 08:42 Pulse 107 H 01/26/22 08:42 Resp 16 01/26/22 08:42 BP 143/88 01/26/22 08:42 Pulse Ox 96 01/26/22 08:42
[2022-01-26] MEDS: NITROFURANTOIN MONOHYD/M-CRYST 100 MG CAP PO SCH ×2 (09:38→21:27)
[2022-01-26] MEDS ORDERED: risperiDONE 0.25 MG TAB PO SCH (10:00)
[2022-01-26] MEDS: DOXEPIN 10 MG CAP PO SCH (21:24)
[2022-01-27] MEDS: DIVALPROEX DR 125 MG TAB PO SCH (08:31)
[2022-01-27] MEDS: NITROFURANTOIN MONOHYD/M-CRYST 100 MG CAP PO SCH ×2 (09:08→21:37)
[2022-01-27] MEDS: risperiDONE 1 MG TAB PO SCH ×2 (09:08→21:37)
--- NOTE | 2022-01-27 10:10 | Progress Note ---
Subjective Date of service: 01/27/22 Principal diagnosis: Schizophrenia Subjective Comment: The patient was seen today. The patient speech is disorganized and nonsensical. She is rambling incoherently. She is able to answer some questions clearly. I asked the patient was she suicidal or homicidal, she replies "no." She states she did not sleep well. The patent denies hallucinations. REVIEW OF SYSTEMS Constitutional: Negative for weight loss ENT: Negative for stridor Respiratory: Negative for cough or hemoptysis All other systems reviewed and are negative MENTAL STATUS EXAMINATION General Appearance and Behavior: Age appropriate, good hygiene, wearing appropriate clothes, good eye contact, irritable, cooperative Cooperation: Participating/engaged, but Guarded Psychomotor Behavior: Psychomotor normal Mood: upset Affect and affective range: congruent with stated mood Thought Process: disorganized Thought Content: None Speech: disorganized Suicidal Ideation: Denies Homicidal Ideation: Denies Hallucinations: Denies Delusions: None elicited Impulse Control: Normal Insight and Judgment: Limited insight and judgment Memory: Limited Attention: divided Orientation: Alert, oriented Assessment and Plan Schizophrenia Treatment Plan Patient admitted for inpatient psychiatric evaluation, medication adjustment and close monitoring The patient's behavior, mood, sleep and appetite will be closely monitored. Patient enrolled in individual and group therapeutic sessions and encouraged to attend. Patient provided with a safe and structured environment. Patient's physical health needs will be addressed by the Hospitalist. Hospitalist Consulted Labs including CBC, CMP, Lipid profile and Hemoglobin A1C levels ordered for baseline reference Social Assessment will be completed and the Egg Worker will work with patient and family to ensure a suitable and safe disposition Medication adjustment will be made as clinically indicated Inverga Sustenna 156mg IM x 1 given in ER Increase Depakote DR 250mg po TID Increased Doxepin 25mg po qhs Increase Risperidone 1.5mg po BID yesterday Usual Wellness Adventist/Preservation: - Start Trazodone 50 mg po QHS & 50 mg po QHS PRN between 10 PM & 2 AM for insomnia - Start Melatonin 5 mg po QHS to promote circadian rhythm The patient agreed on the treatment plan, understood the risk, benefit, altern ative treatment, potential consequence of no treatment, and gave informed consent. Estimated days: 5 Post hospital care: primary care provider, psychiatric provider Case staffed with Dr. Sun Medications and Allergies Allergies Allergy/AdvReac Type Severity Reaction Status Date / Time diphenhydramine HCl AdvReac Rash Verified 03/20/20 14:16 [From Benadryl] Home Medications Medication Instructions Recorded Confirmed Last Taken Type risperiDONE [RisperDAL] 1 mg PO BID 01/19/20 01/25/22 Unknown History Paliperidone Palmitate [Invega 156 mg IM ONCE #1 syringe 02/16/20 01/25/22 Unknown Rx Sustenna (Nf)] Paliperidone Palmitate [Invega 234 mg IM ONCE #1 ml 02/16/20 01/25/22 Unknown Rx Sustenna(Nf)] Nitrofurantoin [place]/M-Cryst 100 mg PO Q12H #14 capsule 01/24/22 01/25/22 Unknown Rx [Macrobid CAP] Active Meds: Active Medications Divalproex Sodium (Divalproex Dr 125 Mg Tab) 125 mg PO TID [facility] Last Admin: 01/27/22 08:31 Dose: 125 mg Doxepin HCl (Doxepin 10 Mg Cap) 10 mg PO QHS [facility] Last Admin: 01/26/22 21:24 Dose: 10 mg Nitrofurantoin Macrocrystals (Nitrofurantoin Monohyd/M-Cryst 100 Mg Cap) 100 mg PO Q12H [facility] Stop: 02/01/22 10:01 Last Admin: 01/27/22 09:08 Dose: 100 mg Risperidone (Risperidone 1 Mg Tab) 1.5 mg PO BID [facility] Last Admin: 01/27/22 09:08 Dose: 1.5 mg Results - Results Labs/Vitals: Laboratory Last Values WBC 7.6 K/mm3 (4.5-11.0) 01/24/22 22:59 RBC 4.91 M/mm3 (3.65-5.03) 01/24/22 22:59 Hgb 13.6 gm/dl (10.1-14.3) 01/24/22 22:59 Hct 40.9 % (30.3-42.9) 01/24/22 22:59 MCV 83 fl (79-97) 01/24/22 22:59 MCH 28 pg (28-32) 01/24/22 22:59 MCHC 33 % (30-34) 01/24/22 22:59 RDW 13.6 % (13.2-15.2) 01/24/22 22:59 Plt Count 232 K/mm3 (140-440) 01/24/22 22:59 Lymph % (Auto) 37.9 % (13.4-35.0) H 01/24/22 22:59 [place] % (Auto) 9.1 % (0.0-7.3) H 01/24/22 22:59 Eos % (Auto) 1.7 % (0.0-4.3) 01/24/22 22:59 Baso % (Auto) 0.6 % (0.0-1.8) 01/24/22 22:59 Lymph # (Auto) 2.9 K/mm3 (1.2-5.4) 01/24/22 22:59 [place] # (Auto) 0.7 K/mm3 (0.0-0.8) 01/24/22 22:59 Eos # (Auto) 0.1 K/mm3 (0.0-0.4) 01/24/22 22:59 Baso # (Auto) 0.0 K/mm3 (0.0-0.1) 01/24/22 22:59 Seg Neutrophils % 50.7 % (40.0-70.0) 01/24/22 22:59 Seg Neutrophils # 3.8 K/mm3 (1.8-7.7) 01/24/22 22:59 Sodium 139 mmol/L (137-145) 01/24/22 22:59 Potassium 3.8 mmol/L (3.6-5.0) 01/24/22 22:59 Chloride 103.4 mmol/L (98-107) 01/24/22 22:59 Carbon Dioxide 19 mmol/L (22-30) L 01/24/22 22:59 Anion Gap 20 mmol/L 01/24/22 22:59 BUN 22 mg/dL (7-17) H 01/24/22 22:59 Creatinine 0.9 mg/dL (0.6-1.2) 01/24/22 22:59 Estimated GFR > 60 ml/min 01/24/22 22:59 BUN/Creatinine Ratio 24 % 01/24/22 22:59 Glucose 103 mg/dL (65-100) H 01/24/22 22:59 Hemoglobin A1c 5.5 % (4-6) 01/24/22 22:59 Calcium 9.9 mg/dL (8.4-10.2) 01/24/22 22:59 Total Bilirubin 0.40 mg/dL (0.1-1.2) 01/24/22 22:59 AST 30 units/L (5-40) 01/24/22 22:59 ALT 23 units/L (7-56) 01/24/22 22:59 Alkaline Phosphatase 73 units/L (35-129) 01/24/22 22:59 Total Protein 7.6 g/dL (6.3-8.2) 01/24/22 22:59 Albumin 4.2 g/dL (3.9-5) 01/24/22 22:59 Albumin/Globulin Ratio 1.2 % 01/24/22 22:59 Triglycerides 135 mg/dL (2-149) 01/24/22 22:59 Cholesterol 194 mg/dL (50-199) 01/24/22 22:59 LDL Cholesterol Direct 132 mg/dL (50-130) H 01/24/22 22:59 HDL Cholesterol 42 mg/dL (40-59) 01/24/22 22:59 Cholesterol/HDL Ratio 4.61 % 01/24/22 22:59 TSH 0.606 mlU/mL (0.270-4.200) 01/24/22 22:59 Last Vital Signs Temp 97.2 F L 01/27/22 08:40 Pulse 111 H 01/27/22 08:40 Resp 18 01/27/22 08:40 BP 132/78 01/27/22 08:40 Pulse Ox 99 01/27/22 08:40
[2022-01-27] MEDS: DIVALPROEX DR 250 MG TAB PO SCH ×3 (10:56→21:36)
--- NOTE | 2022-01-27 16:02 | Progress Note ---
Assessment and Plan - Patient Problems (1) Acute psychosis Current Visit: No Status: Acute Plan to address problem: Supportive care, continue medical management, cognitive behavioral therapy. (2) Bipolar disorder Current Visit: Yes Status: Acute Plan to address problem: Continue medical management, supportive care. (3) HIV (human immunodeficiency virus infection) Current Visit: Yes Status: Acute Plan to address problem: Outpatient infectious disease follow-up. (4) Schizophrenia Current Visit: Yes Status: Acute Qualifiers: Schizophrenia type: unspecified Qualified Code(s): F20.9 - Schizophrenia, unspecified Plan to address problem: Continue medical management. (5) Advance care planning Current Visit: Yes Status: Acute Plan to address problem: Disease education done, care plan discussed, diagnosis discussed, patient is full code. +30 minutes. History Interval history: 51 YO Female with HIV, Bipolar Disorder, Schizophrenia admitted to [facility] unit for psychiatric stabilization. Consult placed by Dr. Guido for medical management. Patient seen and evaluated in the recreation room. No reported nursing events. Patient is at baseline level of cognition and function. Hospitalist Physical - Constitutional Vitals: Temp Pulse Resp BP Pulse Ox 97.2 F L 111 H 18 132/78 99 01/27/22 08:40 01/27/22 08:40 01/27/22 08:40 01/27/22 08:40 01/27/22 08:40 General appearance: Present: no acute distress, well-nourished - EENT Eyes: Present: PERRL, EOM intact ENT: hearing intact - Neck Neck: Present: supple - Respiratory Respiratory effort: normal Respiratory: bilateral: CTA - Cardiovascular Rhythm: regular Heart Sounds: Present: S1 & S2 - Extremities Extremities: no ischemia Peripheral Pulses: within normal limits - Abdominal General gastrointestinal: soft, non-tender, non-distended - Integumentary Integumentary: Present: clear, dry - Psychiatric Psychiatric: cooperative - Neurologic Neurologic: CNII-XII intact Results - Labs CBC & Chem 7: 01/24/22 22:59 04 22:59 Labs: Laboratory Last Values WBC 7.6 K/mm3 (4.5-11.0) 01/24/22 22:59 RBC 4.91 M/mm3 (3.65-5.03) 01/24/22 22:59 Hgb 13.6 gm/dl (10.1-14.3) 01/24/22 22:59 Hct 40.9 % (30.3-42.9) 01/24/22 22:59 MCV 83 fl (79-97) 01/24/22 22:59 MCH 28 pg (28-32) 01/24/22 22:59 MCHC 33 % (30-34) 01/24/22 22:59 RDW 13.6 % (13.2-15.2) 01/24/22:59 Plt Count 232 K/mm3 (140-440) 01/24/22 22:59 Lymph % (Auto) 37.9 % (13.4-35.0) H 01/24/22:59 [place] % (Auto) 9.1 % (0.0-7.3) H 01/24/22:59 Eos % (Auto) 1.7 % (0.0-4.3) 01/24/22:59 Baso % (Auto) 0.6 % (0.0-1.8) 01/24/22:59 Lymph # (Auto) 2.9 K/mm3 (1.2-5.4) 01/24/22 22:59 [place] # (Auto) 0.7 K/mm3 (0.0-0.8) 01/24/22:59 Eos # (Auto) 0.1 K/mm3 (0.0-0.4) 01/24/22:59 Baso # (Auto) 0.0 K/mm3 (0.0-0.1) 01/24/22 22:59 Seg Neutrophils % 50.7 % (40.0-70.0) 01/24/22 22:59 Seg Neutrophils # 3.8 K/mm3 (1.8-7.7) 01/24/22 22:59 Sodium 139 mmol/L (137-145) 01/24/22 22:59 Potassium 3.8 mmol/L (3.6-5.0) 01/24/22 22:59 Chloride 103.4 mmol/L (98-107) 01/24/22 22:59 Carbon Dioxide 19 mmol/L (22-30) L 01/24/22:59 Anion Gap 20 mmol/L 01/24/22:59 BUN 22 mg/dL (7-17) H 01/24/22 22:59 Creatinine 0.9 mg/dL (0.6-1.2) 01/24/22 22:59 Estimated GFR > 60 ml/min 01/24/22 22:59 BUN/Creatinine Ratio 24 % 01/24/22 22:59 Glucose 103 mg/dL (65-100) H 01/24/22 22:59 Hemoglobin A1c 5.5 % (4-6) 01/24/22 22:59 Calcium 9.9 mg/dL (8.4-10.2) 01/24/22 22:59 Total Bilirubin 0.40 mg/dL (0.1-1.2) 01/24/22 22:59 AST 30 units/L (5-40) 01/24/22 22:59 ALT 23 units/L (7-56) 01/24/22 22:59 Alkaline Phosphatase 73 units/L (35-129) 01/24/22 22:59 Total Protein 7.6 g/dL (6.3-8.2) 01/24/22 22:59 Albumin 4.2 g/dL (3.9-5) 01/24/22 22:59 Albumin/Globulin Ratio 1.2 % 01/24/22 22:59 Triglycerides 135 mg/dL (2-149) 01/24/22 22:59 Cholesterol 194 mg/dL (50-199) 01/24/22 22:59 LDL Cholesterol Direct 132 mg/dL (50-130) H 01/24/22 22:59 HDL Cholesterol 42 mg/dL (40-59) 01/24/22 22:59 Cholesterol/HDL Ratio 4.61 % 01/24/22 22:59 TSH 0.606 mlU/mL (0.270-4.200) 01/24/22 22:59 Rice/IV: Voiding Method Toilet Active Medications - Current Medications Current Medications: Generic Name Dose Route Start Last Admin Trade Name Freq PRN Reason Stop Dose Admin Divalproex Sodium 250 mg 01/27/22 11:00 01/27/22 13:[address] 250 Mg Tab PO 250 mg TID ANNIE Administration Doxepin HCl 25 mg 01/27/22 22:00 Doxepin 25 Mg Cap PO QHS [facility] Nitrofurantoin Macrocrystals 100 mg 01/25/22 22:00 01/27/22 09:08 Nitrofurantoin Monohyd/M-Cryst 100 Mg Cap PO 02/01/22 10:01 100 mg Q12H ANNIE Administration Risperidone 1.5 mg 01/26/22 22:00 01/27/22 09:08 Risperidone 1 Mg Tab PO 1.5 mg BID ANNIE Administration
[2022-01-27] MEDS: DOXEPIN 25 MG CAP PO SCH (21:38)
[2022-01-28] MEDS: DIVALPROEX DR 250 MG TAB PO SCH (07:54)
--- NOTE | 2022-01-28 08:26 | Progress Note ---
Subjective Date of service: 01/28/22 Principal diagnosis: Schizophrenia Subjective Comment: The patient was seen today. She is irritable, and shouting at times. Her speech is still very disorganized. She does she she feels pretty good. When asking was she suicidal, the patient shouts and says "no, I said hurt other people." She denies hallucinations. 01/27 The patient was seen today. The patient speech is disorganized and nonsensical. She is rambling incoherently. She is able to answer some questions clearly. I asked the patient was she suicidal or homicidal, she replies "no." She states she did not sleep well. The patent denies hallucinations. REVIEW OF SYSTEMS Constitutional: Negative for weight loss ENT: Negative for stridor Respiratory: Negative for cough or hemoptysis All other systems reviewed and are negative MENTAL STATUS EXAMINATION General Appearance and Behavior: Age appropriate, good hygiene, wearing appropriate clothes, good eye contact, irritable, cooperative Cooperation: Participating/engaged, but Guarded Psychomotor Behavior: Psychomotor normal Mood: upset Affect and affective range: congruent with stated mood Thought Process: disorganized Thought Content: None Speech: disorganized Suicidal Ideation: Denies Homicidal Ideation: Yes Hallucinations: Denies Delusions: None elicited Impulse Control: Normal Insight and Judgment: Limited insight and judgment Memory: Limited Attention: divided Orientation: Alert, oriented Assessment and Plan Schizophrenia Treatment Plan Patient admitted for inpatient psychiatric evaluation, medication adjustment and close monitoring The patient's behavior, mood, sleep and appetite will be closely monitored. Patient enrolled in individual and group therapeutic sessions and encouraged to attend. Patient provided with a safe and structured environment. Patient's physical health needs will be addressed by the Hospitalist. Hospitalist Consulted Labs including CBC, CMP, Lipid profile and Hemoglobin A1C levels ordered for baseline reference Social Assessment will be completed and the Cosmetic Maker will work with patient and family to ensure a suitable and safe disposition Medication adjustment will be made as clinically indicated Inverga Sustenna 156mg IM x 1 given in ER Increase Depakote DR 500mg po BID Start Klonopin 0.5mg po BID x 3 days or prior to d/c Doxepin 25mg po qhs Risperidone 1.5mg po BID Usual Wellness Restorationism/Preservation: - Start Trazodone 50 mg po QHS & 50 mg po QHS PRN between 10 PM & 2 AM for insomnia - Start Melatonin 5 mg po QHS to promote circadian rhythm The patient agreed on the treatment plan, understood the risk, benefit, alternative treatment, potential consequence of no treatment, and gave informed consent. Estimated days: 5 Post hospital care: primary care provider, psychiatric provider Case staffed with Dr. Sun Medications and Allergies Allergies Allergy/AdvReac Type Severity Reaction Status Date / Time diphenhydramine HCl AdvReac Rash Verified 03/20/20 14:16 [From Benadryl] Home Medications Medication Instructions Recorded Confirmed Last Taken Type risperiDONE [RisperDAL] 1 mg PO BID 01/19/20 01/25/22 Unknown History Paliperidone Palmitate [Invega 156 mg IM ONCE #1 syringe 02/16/20 01/25/22 Unkn own Rx Sustenna (Nf)] Paliperidone Palmitate [Invega 234 mg IM ONCE #1 ml 02/16/20 01/25/22 Unknown Rx Sustenna(Nf)] Nitrofurantoin [place]/M-Cryst 100 mg PO Q12H #14 capsule 01/24/22 01/25/22 Unknown Rx [Macrobid CAP] Active Meds: Active Medications Divalproex Sodium (Divalproex Dr 250 Mg Tab) 250 mg PO TID [facility] Last Admin: 01/28/22 07:54 Dose: 250 mg Doxepin HCl (Doxepin 25 Mg Cap) 25 mg PO QHS [facility] Last Admin: 01/27/22 21:38 Dose: 25 mg Nitrofurantoin Macrocrystals (Nitrofurantoin Monohyd/M-Cryst 100 Mg Cap) 100 mg PO Q12H [facility] Stop: 02/01/22 10:01 Last Admin: 01/27/22 21:37 Dose: 100 mg Risperidone (Risperidone 1 Mg Tab) 1.5 mg PO BID [facility] Last Admin: 01/27/22 21:37 Dose: 1.5 mg Results - Results Labs/Vitals: Laboratory Last Values WBC 7.6 K/mm3 (4.5-11.0) 01/24/22 22:59 RBC 4.91 M/mm3 (3.65-5.03) 01/24/22 22:59 Hgb 13.6 gm/dl (10.1-14.3) 01/24/22 22:59 Hct 40.9 % (30.3-42.9) 01/24/22 22:59 MCV 83 fl (79-97) 01/24/22 22:59 MCH 28 pg (28-32) 01/24/22 22:59 MCHC 33 % (30-34) 01/24/22 22:59 RDW 13.6 % (13.2-15.2) 01/24/22 22:59 Plt Count 232 K/mm3 (140-440) 01/24/22 22:59 Lymph % (Auto) 37.9 % (13.4-35.0) H 01/24/22 22:59 [place] % (Auto) 9.1 % (0.0-7.3) H 01/24/22 22:59 Eos % (Auto) 1.7 % (0.0-4.3) 01/24/22: Baso % (Auto) 0.6 % (0.0-1.8) 01/24/22:59 Lymph # (Auto) 2.9 K/mm3 (1.2-5.4) 01/24/22:59 [place] # (Auto) 0.7 K/mm3 (0.0-0.8) 01/24/22 22:59 Eos # (Auto) 0.1 K/mm3 (0.0-0.4) 01/24/22:59 Baso # (Auto) 0.0 K/mm3 (0.0-0.1) 01/24/22 22:59 Seg Neutrophils % 50.7 % (40.0-70.0) 01/24/22 22:59 Seg Neutrophils # 3.8 K/mm3 (1.8-7.7) 01/24/22 22:59 Sodium 139 mmol/L (137-145) 01/24/22 22:59 Potassium 3.8 mmol/L (3.6-5.0) 01/24/22 22:59 Chloride 103.4 mmol/L (98-107) 01/24/22 22:59 Carbon Dioxide 19 mmol/L (22-30) L 01/24/22 22:59 Anion Gap 20 mmol/L 01/24/22 22:59 BUN 22 mg/dL (7-17) H 01/24/22 22:59 Creatinine 0.9 mg/dL (0.6-1.2) 01/24/22 22:59 Estimated GFR > 60 ml/min 01/24/22 22:59 BUN/Creatinine Ratio 24 % 01/24/22 22:59 Glucose 103 mg/dL (65-100) H 01/24/22 22:59 Hemoglobin A1c 5.5 % (4-6) 01/24/22 22:59 Calcium 9.9 mg/dL (8.4-10.2) 01/24/22 22:59 Total Bilirubin 0.40 mg/dL (0.1-1.2) 01/24/22 22:59 AST 30 units/L (5-40) 01/24/22 22:59 ALT 23 units/L (7-56) 01/24/22 22:59 Alkaline Phosphatase 73 units/L (35-129) 01/24/22 22:59 Total Protein 7.6 g/dL (6.3-8.2) 01/24/22 22:59 Albumin 4.2 g/dL (3.9-5) 01/24/22 22:59 Albumin/Globulin Ratio 1.2 % 01/24/22 22:59 Triglycerides 135 mg/dL (2-149) 01/24/22 22:59 Cholesterol 194 mg/dL (50-199) 01/24/22 22:59 LDL Cholesterol Direct 132 mg/dL (50-130) H 01/24/22 22:59 HDL Cholesterol 42 mg/dL (40-59) 01/24/22 22:59 Cholesterol/HDL Ratio 4.61 % 01/24/22 22:59 TSH 0.606 mlU/mL (0.270-4.200) 01/24/22 22:59 Last Vital Signs Temp 99.1 F 01/27/22 19:40 Pulse 98 H 01/27/22 19:40 Resp 20 01/27/22 19:40 BP 130/79 01/27/22 19:40 Pulse Ox 95 01/27/22 19:40
--- NOTE | 2022-01-28 09:57 | Event Note ---
Date: 01/28/22 Reordered Invega Susttoya. Was told in ER that it would be given. Found out today that it was not. Reordered for today.
[2022-01-28] MEDS: risperiDONE 1 MG TAB PO SCH ×2 (10:06→21:38)
[2022-01-28] MEDS: clonazePAM 0.5 MG TAB PO SCH ×2 (10:06→21:40)
[2022-01-28] MEDS: DIVALPROEX DR 500 MG TAB PO SCH ×2 (10:06→21:40)
[2022-01-28] MEDS ORDERED: PALIPERIDONE PALMITATE 156 MG/ML INJ IM ONE (10:55)
[2022-01-28] MEDS: NITROFURANTOIN MONOHYD/M-CRYST 100 MG CAP PO SCH ×2 (13:41→21:44)
[2022-01-28] MEDS: DOXEPIN 25 MG CAP PO SCH (21:40)
--- NOTE | 2022-01-29 09:13 | Progress Note ---
Subjective Date of service: 01/29/22 Principal diagnosis: Schizophrenia Subjective Comment: 01/29/22: The patient was seen this morning. She rambles but able to express herself. She states she doing ok. She states " I'm great, I'm happy." The patient denies any current suicidal/homicidal ideation and denies hallucinations. 01/28/22:The patient was seen today. She is irritable, and shouting at times. Her speech is still very disorganized. She does she she feels pretty good. When asking was she suicidal, the patient shouts and says "no, I said hurt other people." She denies hallucinations. 01/27 The patient was seen today. The patient speech is disorganized and nonsensical. She is rambling incoherently. She is able to answer some questions clearly. I asked the patient was she suicidal or homicidal, she replies "no." She states she did not sleep well. The patent denies hallucinations. REVIEW OF SYSTEMS Constitutional: Negative for weight loss ENT: Negative for stridor Respiratory: Negative for cough or hemoptysis All other systems reviewed and are negative MENTAL STATUS EXAMINATION General Appearance and Behavior: Age appropriate, good hygiene, wearing appropriate clothes, good eye contact, irritable, cooperative Cooperation: Participating/engaged, but Guarded Psychomotor Behavior: Psychomotor normal Mood: OK Affect and affective range: congruent with stated mood Thought Process: Labile Thought Content: None Speech: disorganized Suicidal Ideation: Denies Homicidal Ideation: Denies Hallucinations: Denies Delusions: None elicited Impulse Control: Normal Insight and Judgment: Limited insight and judgment Memory: Limited Attention: divided Orientation: Alert, oriented Assessment and Plan Schizophrenia Treatment Plan Patient admitted for inpatient psychiatric evaluation, medication adjustment and close monitoring The patient's behavior, mood, sleep and appetite will be closely monitored. Patient enrolled in individual and group therapeutic sessions and encouraged to attend. Patient provided with a safe and structured environment. Patient's physical health needs will be addressed by the Hospitalist. H ospitalist Consulted Labs including CBC, CMP, Lipid profile and Hemoglobin A1C levels ordered for baseline reference Social Assessment will be completed and the Dehydration Unit Operator will work with patient and family to ensure a suitable and safe disposition Medication adjustment will be made as clinically indicated Invega Sustenna 156mg IM x [address] 500mg po BID Continue Klonopin 0.5mg po BID x 3 days or prior to d/c Doxepin 25mg po qhs Risperidone 1.5mg po BID Usual Wellness Rastafarian/Preservation: - Start Trazodone 50 mg po QHS & 50 mg po QHS PRN between 10 PM & 2 AM for insomnia - Start Melatonin 5 mg po QHS to promote circadian rhythm The patient agreed on the treatment plan, understood the risk, benefit, alternative treatment, potential consequence of no treatment, and gave informed consent. Estimated days: 5 Post hospital care: primary care provider, psychiatric provider Case staffed with Dr. Sun Medications and Allergies Medications and Allergies Allergies Allergy/AdvReac Type Severity Reaction Status Date / Time diphenhydramine HCl AdvReac Rash Verified 03/20/20 14:16 [From [facility]] Home Medications Medication Instructions Recorded Confirmed Last Taken Type risperiDONE [RisperDAL] 1 mg PO BID 01/19/20 01/25/22 Unknown History Paliperidone Palmitate [Invega 156 mg IM ONCE #1 syringe 02/16/20 01/25/22 Unknown Rx Sustenna (Nf)] Paliperidone Palmitate [Invega 234 mg IM ONCE #1 ml 02/16/20 01/25/22 Unknown Rx Sustenna(Nf)] Nitrofurantoin [place]/M-Cryst 100 mg PO Q12H #14 capsule 01/24/22 01/25/22 Unknown Rx [Macrobid CAP] Active Meds: Active Medications Clonazepam (Clonazepam 0.5 Mg Tab) 0.5 mg PO BID [facility] Stop: 01/31/22 06:00 Last Admin: 01/28/22 21:40 Dose: 0.5 mg Divalproex Sodium (Divalproex Dr 500 Mg Tab) 500 mg PO BID [facility] Last Admin: 01/28/22 21:40 Dose: 500 mg Doxepin HCl (Doxepin 25 Mg Cap) 25 mg PO QHS [facility] Last Admin: 01/28/22 21:40 Dose: 25 mg Nitrofurantoin Macrocrystals (Nitrofurantoin Monohyd/M-Cryst 100 Mg Cap) 100 mg PO Q12H [facility] Stop: 02/01/22 10:01 Last Admin: 01/28/22 21:44 Dose: 100 mg Risperidone (Risperidone 1 Mg Tab) 1.5 mg PO BID [facility] Last Admin: 01/28/22 21:38 Dose: 1.5 mg Results - Results Labs/Vitals: Laboratory Last Values WBC 7.6 K/mm3 (4.5-11.0) 01/24/22 22:59 RBC 4.91 M/mm3 (3.65-5.03) 01/24/22 22:59 Hgb 13.6 gm/dl (10.1-14.3) 01/24/22 22:59 Hct 40.9 % (30.3-42.9) 01/24/22 22:59 MCV 83 fl (79-97) 01/24/22 22:59 MCH 28 pg (28-32) 01/24/22 22:59 MCHC 33 % (30-34) 01/24/22:59 RDW 13.6 % (13.2-15.2) 01/24/22: Plt Count 232 K/mm3 (140-440) 01/24/22 22:59 Lymph % (Auto) 37.9 % (13.4-35.0) H 01/24/22:59 [place] % (Auto) 9.1 % (0.0-7.3) H 01/24/22 22:59 Eos % (Auto) 1.7 % (0.0-4.3) 01/24/22: Baso % (Auto) 0.6 % (0.0-1.8) 01/24/22 22:59 Lymph # (Auto) 2.9 K/mm3 (1.2-5.4) 01/24/22 22:59 [place] # (Auto) 0.7 K/mm3 (0.0-0.8) 01/24/22:59 Eos # (Auto) 0.1 K/mm3 (0.0-0.4) 01/24/22 22:59 Baso # (Auto) 0.0 K/mm3 (0.0-0.1) 01/24/22 22:59 Seg Neutrophils % 50.7 % (40.0-70.0) 01/24/22 22:59 Seg Neutrophils # 3.8 K/mm3 (1.8-7.7) 01/24/22 22:59 Sodium 139 mmol/L (137-145) 01/24/22 22:59 Potassium 3.8 mmol/L (3.6-5.0) 01/24/22 22:59 Chloride 103.4 mmol/L (98-107) 01/24/22 22:59 Carbon Dioxide 19 mmol/L (22-30) L 01/24/22 22:59 Anion Gap 20 mmol/L 01/24/22 22:59 BUN 22 mg/dL (7-17) H 01/24/22 22:59 Creatinine 0.9 mg/dL (0.6-1.2) 01/24/22 22:59 Estimated GFR > 60 ml/min 01/24/22 22:59 BUN/Creatinine Ratio 24 % 01/24/22 22:59 Glucose 103 mg/dL (65-100) H 01/24/22 22:59 Hemoglobin A1c 5.5 % (4-6) 01/24/22 22:59 Calcium 9.9 mg/dL (8.4-10.2) 01/24/22 22:59 Total Bilirubin 0.40 mg/dL (0.1-1.2) 01/24/22 22:59 AST 30 units/L (5-40) 01/24/22 22:59 ALT 23 units/L (7-56) 01/24/22 22:59 Alkaline Phosphatase 73 units/L (35-129) 01/24/22 22:59 Total Protein 7.6 g/dL (6.3-8.2) 01/24/22 22:59 Albumin 4.2 g/dL (3.9-5) 01/24/22 22:59 Albumin/Globulin Ratio 1.2 % 01/24/22 22:59 Triglycerides 135 mg/dL (2-149) 01/24/22 22:59 Cholesterol 194 mg/dL (50-199) 01/24/22 22:59 LDL Cholesterol Direct 132 mg/dL (50-130) H 01/24/22 22:59 HDL Cholesterol 42 mg/dL (40-59) 01/24/22 22:59 Cholesterol/HDL Ratio 4.61 % 01/24/22 22:59 TSH 0.606 mlU/mL (0.270-4.200) 01/24/22 22:59 Last Vital Signs Temp 98.9 F 01/28/22 19:27 Pulse 100 H 01/28/22 19:27 Resp 17 01/28/22 19:27 BP 135/69 01/28/22 19:27 Pulse Ox 94 01/28/22 19:27
[2022-01-29] MEDS: risperiDONE 1 MG TAB PO SCH ×2 (11:21→21:35)
[2022-01-29] MEDS: clonazePAM 0.5 MG TAB PO SCH ×2 (11:22→21:35)
[2022-01-29] MEDS: DIVALPROEX DR 500 MG TAB PO SCH ×2 (11:22→21:36)
[2022-01-29] MEDS: NITROFURANTOIN MONOHYD/M-CRYST 100 MG CAP PO SCH ×2 (11:29→21:36)
[2022-01-29] MEDS ORDERED: PALIPERIDONE PALMITATE 156 MG/ML INJ IM NR (13:00)
[2022-01-29] MEDS ORDERED: PALIPERIDONE PALMITATE 156 MG/ML INJ IM ONE (15:00)
--- NOTE | 2022-01-29 20:28 | Progress Note ---
Assessment and Plan - Patient Problems (1) Acute psychosis Status: Acute Plan to address problem: Supportive care, continue medical management, cognitive behavioral therapy. (2) Bipolar disorder Status: Acute Plan to address problem: Continue medical management, supportive care. (3) HIV (human immunodeficiency virus infection) Status: Acute Plan to address problem: Outpatient infectious disease follow-up. (4) Schizophrenia Status: Acute Qualifiers: Schizophrenia type: unspecified Qualified Code(s): F20.9 - Schizophrenia, unspecified Plan to address problem: Continue medical management. (5) Advance care planning Status: Acute Plan to address problem: Disease education done, care plan discussed, diagnosis discussed, patient is full code. +30 minutes. History Interval history: 51 YO Female with HIV, Bipolar Disorder, Schizophrenia admitted to [facility] unit for psychiatric stabilization. Consult placed by Dr. Guido for medical management. Patient seen and evaluated in the recreation room. No reported nursing events. Patient is at baseline level of cognition and function. Hospitalist Physical - Constitutional Vitals: Temp Pulse Resp BP Pulse Ox 98.4 F 88 18 116/71 99 01/29/22 09:38 01/29/22 09:38 01/29/22 09:38 01/29/22 09:38 01/29/22 09:38 General appearance: Present: no acute distress, well-nourished - EENT Eyes: Present: PERRL, EOM intact ENT: hearing intact - Neck Neck: Present: supple - Respiratory Respiratory effort: normal Respiratory: bilateral: CTA - Cardiovascular Rhythm: regular Heart Sounds: Present: S1 & S2 - Extremities Extremities: no ischemia Peripheral Pulses: within normal limits - Abdominal General gastrointestinal: soft, non-tender, non-distended - Integumentary Integumentary: Present: clear, dry - Psychiatric Psychiatric: cooperative - Neurologic Neurologic: CNII-XII intact Results - Labs CBC & Chem 7: 01/24/22 22:59 04 22:59 Labs: Laboratory Last Values WBC 7.6 K/mm3 (4.5-11.0) 01/24/22 22:59 RBC 4.91 M/mm3 (3.65-5.03) 01/24/22 22:59 Hgb 13.6 gm/dl (10.1-14.3) 01/24/22 22:59 Hct 40.9 % (30.3-42.9) 01/24/22 22:59 MCV 83 fl (79-97) 01/24/22 22:59 MCH 28 pg (28-32) 01/24/22 22:59 MCHC 33 % (30-34) 01/24/22 22:59 RDW 13.6 % (13.2-15.2) 01/24/22 22:59 Plt Count 232 K/mm3 (140-440) 01/24/22 22:59 Lymph % (Auto) 37.9 % (13.4-35.0) H 01/24/22:59 [place] % (Auto) 9.1 % (0.0-7.3) H 01/24/22:59 Eos % (Auto) 1.7 % (0.0-4.3) 01/24/22:59 Baso % (Auto) 0.6 % (0.0-1.8) 01/24/22:59 Lymph # (Auto) 2.9 K/mm3 (1.2-5.4) 01/24/22:59 [place] # (Auto) 0.7 K/mm3 (0.0-0.8) 01/24/22:59 Eos # (Auto) 0.1 K/mm3 (0.0-0.4) 01/24/22:59 Baso # (Auto) 0.0 K/mm3 (0.0-0.1) 01/24/22 22:59 Seg Neutrophils % 50.7 % (40.0-70.0) 01/24/22:59 Seg Neutrophils # 3.8 K/mm3 (1.8-7.7) 01/24/22 22:59 Sodium 139 mmol/L (137-145) 01/24/22 22:59 Potassium 3.8 mmol/L (3.6-5.0) 01/24/22:59 Chloride 103.4 mmol/L (98-107) 01/24/22:59 Carbon Dioxide 19 mmol/L (22-30) L 01/24/22:59 Anion Gap 20 mmol/L 01/24/22 22:59 BUN 22 mg/dL (7-17) H 01/24/22 22:59 Creatinine 0.9 mg/dL (0.6-1.2) 01/24/22 22:59 Estimated GFR > 60 ml/min 01/24/22 22:59 BUN/Creatinine Ratio 24 % 01/24/22 22:59 Glucose 103 mg/dL (65-100) H 01/24/22 22:59 Hemoglobin A1c 5.5 % (4-6) 01/24/22 22:59 Calcium 9.9 mg/dL (8.4-10.2) 01/24/22 22:59 Total Bilirubin 0.40 mg/dL (0.1-1.2) 01/24/22 22:59 AST 30 units/L (5-40) 01/24/22 22:59 ALT 23 units/L (7-56) 01/24/22 22:59 Alkaline Phosphatase 73 units/L (35-129) 01/24/22 22:59 Total Protein 7.6 g/dL (6.3-8.2) 01/24/22 22:59 Albumin 4.2 g/dL (3.9-5) 01/24/22 22:59 Albumin/Globulin Ratio 1.2 % 01/24/22 22:59 Triglycerides 135 mg/dL (2-149) 01/24/22 22:59 Cholesterol 194 mg/dL (50-199) 01/24/22 22:59 LDL Cholesterol Direct 132 mg/dL (50-130) H 01/24/22 22:59 HDL Cholesterol 42 mg/dL (40-59) 01/24/22 22:59 Cholesterol/HDL Ratio 4.61 % 01/24/22 22:59 TSH 0.606 mlU/mL (0.270-4.200) 01/24/22 22:59 Rice/IV: Voiding Method Toilet Active Medications - Current Medications Current Medications: Generic Name Dose Route Start Last Admin Trade Name Freq PRN Reason Stop Dose Admin Clonazepam 0.5 mg 01/28/22 10:00 01/29/22 11:22 Clonazepam 0.5 Mg Tab PO 01/31/22 06:00 0.5 mg BID ANNIE Administration Divalproex Sodium 500 mg 01/28/22 10:00 01/29/22 11:[address] 500 Mg Tab PO 500 mg BID ANNIE Administration Doxepin HCl 25 mg 01/27/22 22:00 01/28/22 21:40 Doxepin 25 Mg Cap PO 25 mg QHS ANNIE Administration Nitrofurantoin Macrocrystals 100 mg 01/25/22 22:00 01/29/22 11:29 Nitrofurantoin Monohyd/M-Cryst 100 Mg Cap PO 02/01/22 10:01 100 mg Q12H ANNIE Administration Risperidone 1.5 mg 01/26/22 22:00 01/29/22 11:21 Risperidone 1 Mg Tab PO 1.5 mg BID ANNIE Administration Nutrition/Malnutrition Assess - Dietary Evaluation Nutrition/Malnutrition Findings: Nutrition Notes Start: 01/29/22 10:06 Freq: Status: Active Protocol: Document 01/29/22 10:06 CHET (Rec: 01/29/22 10:09 CHET [id number]) Nutrition Notes Need for Assessment generated from: LOS Initial or Follow up Brief Note Current Diet Regular Height 5 ft 10 in Weight 82 kg Ambia Body Weight (kg) 68.18 BMI 25.9 Weight Status Appropriate Subjective/Other Information Pt screened for LOS. She has consumed 92% of meals since admission. Percent of energy/protein needs met: 100% energy and pro needs Burn Absent Trauma Absent Current % PO Good (75-100%) Minimum of two criteria No Is patient on ventilator? No Is Patient Ambulatory and/or Out of Bed Yes [facility] [ [id number] [id number]] Calculation Used for Recommendations [facility] Additional Notes Pro needs 0.8-1g/k-82g/ day Fluid needs 1ml/kcal Nutrition Intervention Revisit per MD consult or patient Sign Off request:
[2022-01-29] MEDS: DOXEPIN 25 MG CAP PO SCH (21:36)
[2022-01-29 23:30] VITALS: BP 153/87
--- NOTE | 2022-01-30 08:37 | Discharge Summary ---
Providers - Providers Date of Admission: 01/24/22 18:59 Date of discharge: 01/30/22 Attending physician: SURESH CARR MD 01/24/22 17:33 Consult to Physician [CONS] Routine Comment: Consulting Provider: MALINDA ARREAGA Physician Instructions: Reason For Exam: manage medical Primary care physician: BRIAN LABOY Hospitalization Reason for admission: hallucinations Admitting Diagnosis: F20.9 - SCHIZOPHRENIA, UNSPECIFIED Hospital course: The patient was provided inpatient psychiatric treatment with safe and supportive environment, group/individual therapy, psychiatric medication, medication adjustment, adverse effect monitor, medical evaluation, medical treatment, social service assessment, social support meeting, placement assessment and psycho-education. The patients mood, cognition, behavior, motivation, compliance to treatment and appreciation on family/social support are improved and stabilized. At the time of discharge, the patient had no suicidal ideas, no homicidal ideas, no aggressive thoughts, no endangering behavior and no debilitating adverse effects. The patient agreed on the treatment plan, understood the risk, benefit, alternative treatment, potential consequence of no treatment, and gave informed consent. Progress Note: 01/29/22: The patient was seen this morning. She rambles but able to express herself. She states she doing ok. She states " I'm great, I'm happy." The patient denies any current suicidal/homicidal ideation and denies halluc inations. 01/28/22:The patient was seen today. She is irritable, and shouting at times. Her speech is still very disorganized. She does she she feels pretty good. When asking was she suicidal, the patient shouts and says "no, I said hurt other people." She denies hallucinations. 01/27 The patient was seen today. The patient speech is disorganized and nonsensical. She is rambling incoherently. She is able to answer some questions clearly. I asked the patient was she suicidal or homicidal, she replies "no." She states she did not sleep well. The patent denies hallucinations. 01/26 The patient was seen today. She starts making bizarre sounds when I walk up to her. Her speech is disorganized and nonsensical at times. She does answer some questions logically. She denies SI/HI or hallucinations. I ask the patient why was she making the weird noises. She replies "you tell me." I ask her how did she sleep, she mumbles something then claps her hand. Disposition: 30 STILL A PATIENT Allergies/Adverse Reactions: Allergies diphenhydramine HCl [From Benadryl] Adverse Reaction (Verified 03/20/20 14:16) Rash Vital Signs: Last Vital Signs Temp 97.1 F L 01/29/22 19:37 Pulse 105 H 01/29/22 19:37 Resp 17 01/29/22 19:37 BP 153/87 01/29/22 19:37 Pulse Ox 97 01/29/22 19:37 Last Lab: Laboratory Last Values WBC 7.6 K/mm3 (4.5-11.0) 01/24/22 22:59 RBC 4.91 M/mm3 (3.65-5.03) 01/24/22 22:59 Hgb 13.6 gm/dl (10.1-14.3) 01/24/22 22:59 Hct 40.9 % (30.3-42.9) 01/24/22 22:59 MCV 83 fl (79-97) 01/24/22 22:59 MCH 28 pg (28-32) 01/24/22 22:59 MCHC 33 % (30-34) 01/24/22 22:59 RDW 13.6 % (13.2-15.2) 01/24/22 22:59 Plt Count 232 K/mm3 (140-440) 01/24/22 22:59 Lymph % (Auto) 37.9 % (13.4-35.0) H 01/24/22 22:59 [place] % (Auto) 9.1 % (0.0-7.3) H 01/24/22 22:59 Eos % (Auto) 1.7 % (0.0-4.3) 01/24/22 22:59 Baso % (Auto) 0.6 % (0.0-1.8) 01/24/22 22:59 Lymph # (Auto) 2.9 K/mm3 (1.2-5.4) 01/24/22 22:59 [place] # (Auto) 0.7 K/mm3 (0.0-0.8) 01/24/22 22:59 Eos # (Auto) 0.1 K/mm3 (0.0-0.4) 01/24/22 22:59 Baso # (Auto) 0.0 K/mm3 (0.0-0.1) 01/24/22 22:59 Seg Neutrophils % 50.7 % (40.0-70.0) 01/24/22 22:59 Seg Neutrophils # 3.8 K/mm3 (1.8-7.7) 01/24/22 22:59 Sodium 139 mmol/L (137-145) 01/24/22 22:59 Potassium 3.8 mmol/L (3.6-5.0) 01/24/22 22:59 Chloride 103.4 mmol/L (98-107) 01/24/22 22:59 Carbon Dioxide 19 mmol/L (22-30) L 01/24/22 22:59 Anion Gap 20 mmol/L 01/24/22 22:59 BUN 22 mg/dL (7-17) H 01/24/22 22:59 Creatinine 0.9 mg/dL (0.6-1.2) 01/24/22 22:59 Estimated GFR > 60 ml/min 01/24/22 22:59 BUN/Creatinine Ratio 24 % 01/24/22 22:59 Glucose 103 mg/dL (65-100) H 01/24/22 22:59 Hemoglobin A1c 5.5 % (4-6) 01/24/22 22:59 Calcium 9.9 mg/dL (8.4-10.2) 01/24/22 22:59 Total Bilirubin 0.40 mg/dL (0.1-1.2) 01/24/22 22:59 AST 30 units/L (5-40) 01/24/22 22:59 ALT 23 units/L (7-56) 01/24/22 22:59 Alkaline Phosphatase 73 units/L (35-129) 01/24/22 22:59 Total Protein 7.6 g/dL (6.3-8.2) 01/24/22 22:59 Albumin 4.2 g/dL (3.9-5) 01/24/22 22:59 Albumin/Globulin Ratio 1.2 % 01/24/22 22:59 Triglycerides 135 mg/dL (2-149) 01/24/22 22:59 Cholesterol 194 mg/dL (50-199) 01/24/22 22:59 LDL Cholesterol Direct 132 mg/dL (50-130) H 01/24/22 22:59 HDL Cholesterol 42 mg/dL (40-59) 01/24/22 22:59 Cholesterol/HDL Ratio 4.61 % 01/24/22 22:59 TSH 0.606 mlU/mL (0.270-4.200) 01/24/22 22:59 Core Measure Documentation - Palliative Care Palliative Care/ Comfort Measures: Not Applicable - Core Measures Any of the following diagnoses?: none - VTE Discharge Requirements Deep Vein Thrombosis/Pulmonary Embolism Present on Admission: No Exam - Constitutional Vitals: Temp Pulse Resp BP Pulse Ox 97.1 F L 105 H 17 153/87 97 01/29/22 19:37 01/29/22 19:37 01/29/22 19:37 01/29/22 19:37 01/29/22 19:37 Plan Activity: advance as tolerated Weight Bearing Status: Weight Bear as Tolerated Care Plan Goals: Maintain good and stable mental health. Plan of Treatment: The patient should be compliant with medications, not to use drugs and not to drink alcohol.The patient understands that if suicidal ideas, homicidal ideas, or any endangering thoughts/behavior arise, they should immediately seek for emergent assistance including but not limited to crisis hot line and emergency room. Follow up with outpatient Psychiatrist and PCP within 7 - 14 days of discharge. Follow up with: BRIAN LABOY MD [Primary Care Provider] - 7 Days Prescriptions: Doxepin [SINEquan] 25 mg PO QHS 30 Days #[address] [Depakote Dr] 500 mg PO BID 30 Days #60 tablet
[2022-01-30] MEDS: risperiDONE 1 MG TAB PO SCH (09:13)
[2022-01-30] MEDS: clonazePAM 0.5 MG TAB PO SCH (09:13)
[2022-01-30] MEDS: DIVALPROEX DR 500 MG TAB PO SCH (09:13)
[2022-01-30] MEDS: NITROFURANTOIN MONOHYD/M-CRYST 100 MG CAP PO SCH (09:14)
--- NOTE | 2022-02-01 11:13 | Progress Note ---
Assessment and Plan - Patient Problems (1) Acute psychosis Status: Acute Plan to address problem: Supportive care, continue medical management, cognitive behavioral therapy. (2) Bipolar disorder Status: Acute Plan to address problem: Continue medical management, supportive care. (3) HIV (human immunodeficiency virus infection) Status: Acute Plan to address problem: Outpatient infectious disease follow-up. (4) Schizophrenia Status: Acute Qualifiers: Schizophrenia type: unspecified Qualified Code(s): F20.9 - Schizophrenia, unspecified Plan to address problem: Continue medical management. (5) Advance care planning Status: Acute Plan to address problem: Disease education done, care plan discussed, diagnosis discussed, patient is full code. +30 minutes. History Interval history: 51 YO Female with HIV, Bipolar Disorder, Schizophrenia admitted to [facility] unit for psychiatric stabilization. Consult placed by Dr. Guido for medical management. Patient seen and evaluated in the recreation room. No reported nursing events. Patient is at baseline level of cognition and function. Hospitalist Physical - Constitutional Vitals: Temp Pulse Resp BP Pulse Ox 97.1 F L 105 H 17 153/87 97 01/29/22 19:37 01/29/22 19:37 01/29/22 19:37 01/29/22 19:37 01/29/22 19:37 General appearance: Present: no acute distress, well-nourished - EENT Eyes: Present: PERRL, EOM intact ENT: hearing intact - Neck Neck: Present: supple - Respiratory Respiratory effort: normal Respiratory: bilateral: CTA - Cardiovascular Rhythm: regular Heart Sounds: Present: S1 & S2 - Extremities Extremities: no ischemia Peripheral Pulses: within normal limits - Abdominal General gastrointestinal: soft, non-tender, non-distended - Integumentary Integumentary: Present: clear, dry - Psychiatric Psychiatric: cooperative - Neurologic Neurologic: CNII-XII intact Results - Labs CBC & Chem 7: 01/24/22 22:59 04 22:59 Labs: Laboratory Last Values WBC 7.6 K/mm3 (4.5-11.0) 01/24/22 22:59 RBC 4.91 M/mm3 (3.65-5.03) 01/24/22 22:59 Hgb 13.6 gm/dl (10.1-14.3) 01/24/22 22:59 Hct 40.9 % (30.3-42.9) 01/24/22 22:59 MCV 83 fl (79-97) 01/24/22 22:59 MCH 28 pg (28-32) 01/24/22 22:59 MCHC 33 % (30-34) 01/24/22 22:59 RDW 13.6 % (13.2-15.2) 01/24/22 22:59 Plt Count 232 K/mm3 (140-440) 01/24/22 22:59 Lymph % (Auto) 37.9 % (13.4-35.0) H 01/24/22 22:59 [place] % (Auto) 9.1 % (0.0-7.3) H 01/24/22 22:59 Eos % (Auto) 1.7 % (0.0-4.3) 01/24/22 22:59 Baso % (Auto) 0.6 % (0.0-1.8) 01/24/22 22:59 Lymph # (Auto) 2.9 K/mm3 (1.2-5.4) 01/24/22 22:59 [place] # (Auto) 0.7 K/mm3 (0.0-0.8) 01/24/22 22:59 Eos # (Auto) 0.1 K/mm3 (0.0-0.4) 01/24/22:59 Baso # (Auto) 0.0 K/mm3 (0.0-0.1) 01/24/22 22:59 Seg Neutrophils % 50.7 % (40.0-70.0) 01/24/22 22:59 Seg Neutrophils # 3.8 K/mm3 (1.8-7.7) 01/24/22 22:59 Sodium 139 mmol/L (137-145) 01/24/22 22:59 Potassium 3.8 mmol/L (3.6-5.0) 01/24/22 22:59 Chloride 103.4 mmol/L (98-107) 01/24/22 22:59 Carbon Dioxide 19 mmol/L (22-30) L 01/24/22 22:59 Anion Gap 20 mmol/L 01/24/22 22:59 BUN 22 mg/dL (7-17) H 01/24/22 22:59 Creatinine 0.9 mg/dL (0.6-1.2) 01/24/22 22:59 Estimated GFR > 60 ml/min 01/24/22 22:59 BUN/Creatinine Ratio 24 % 01/24/22 22:59 Glucose 103 mg/dL (65-100) H 01/24/22 22:59 Hemoglobin A1c 5.5 % (4-6) 01/24/22 22:59 Calcium 9.9 mg/dL (8.4-10.2) 01/24/22 22:59 Total Bilirubin 0.40 mg/dL (0.1-1.2) 01/24/22 22:59 AST 30 units/L (5-40) 01/24/22 22:59 ALT 23 units/L (7-56) 01/24/22 22:59 Alkaline Phosphatase 73 units/L (35-129) 01/24/22 22:59 Total Protein 7.6 g/dL (6.3-8.2) 01/24/22 22:59 Albumin 4.2 g/dL (3.9-5) 01/24/22 22:59 Albumin/Globulin Ratio 1.2 % 01/24/22 22:59 Triglycerides 135 mg/dL (2-149) 01/24/22 22:59 Cholesterol 194 mg/dL (50-199) 01/24/22 22:59 LDL Cholesterol Direct 132 mg/dL (50-130) H 01/24/22 22:59 HDL Cholesterol 42 mg/dL (40-59) 01/24/22 22:59 Cholesterol/HDL Ratio 4.61 % 01/24/22 22:59 TSH 0.606 mlU/mL (0.270-4.200) 01/24/22 22:59 Rice/IV: Voiding Method Toilet Nutrition/Malnutrition Assess - Dietary Evaluation Nutrition/Malnutrition Findings: Nutrition Notes Start: 01/29/22 10:06 Freq: Status: Discharge Protocol: Document 01/29/22 10:06 CHET (Rec: 01/29/22 10:09 CHET [id number]) Nutrition Notes Need for Assessment generated from: LOS Initial or Follow up Brief Note Current Diet Regular Height 5 ft 10 in Weight 82 kg [place] Body Weight (kg) 68.18 BMI 25.9 Weight Status Appropriate Subjective/Other Information Pt screened for LOS. She has consumed 92% of meals since admission. Percent of energy/protein needs met: 100% energy and pro needs Burn Absent Trauma Absent Current % PO Good (75-100%) Minimum of two criteria No Is patient on ventilator? No Is Patient Ambulatory and/or Out of Bed Yes REE-([facility]-ambulatory/OOB) [ 1969.825 [id number]] Calculation Used for Recommendations [facility] Additional Notes Pro needs 0.8-1g/k-82g/ day Fluid needs 1ml/kcal Nutrition Intervention Revisit per MD consult or patient Sign Off request:
== END 2022-01-30 09:20 | disposition home or self-care (01) | DRG 885 ==
LOC: 3A 16:06 → UNDOADMIN 16:06 → 5A 18:59
PROVIDERS: ADMIT Psychiatry & Neurology Psychiatry; ATTEND Psychiatry & Neurology Psychiatry
DX: F20.9 Schizophrenia, unspecified (principal); F31.9 Bipolar disorder, unspecified; B20 Human immunodeficiency virus [HIV] disease; F41.9 Anxiety disorder, unspecified; Z82.49 Family history of ischemic heart disease and other diseases of the circulatory system; Z88.8 Allergy status to other drugs, medicaments and biological substances
CPT/HCPCS: 36415; 80053; 80061; 80307; 80320; 81001; 83036; 84443; 84703; 85025; 87086; 93005; G0378; G0480; J2060; J2426; J3486; U0003